=== PATIENT | female | born 1955 | race Caucasian/White ===

== ENCOUNTER 2017-04-24 09:11 | Day surgery (SDC) | payer BC ==
[~2017-04-24 09:11] MED LIST: CHONDR SU A NA/HYALUR INTRAOC KIT (SURGICARE) ONE; EPINEPHRINE INJ/PF 1 MG/1 ML AMPULE ONE; KETOROLAC TROMETHAMINE 0.45% 4 DROP/0.4 ML DROPERETTE OS PRN; LIDOCAINE 1% INJ-PF (10 MG/ML) 30 ML SDV ONE
[2017-04-24] MEDS: TETRACAINE HCL 0.5% OPH SOLN 2 ML OS PRN ×4 (09:27→10:06)
[2017-04-24] MEDS: CYCLOPENTOLATE 0.2%/PHENYLEPHRINE 1% OPH SOLN 2 ML OS PRN ×3 (09:27→09:50)
[2017-04-24] MEDS: BESIFLOXACIN HCL 0.6% OPH SUSP 5 ML BOTTLE OS PRN ×3 (09:28→10:21)
[2017-04-24] MEDS: TROPICAMIDE 1% OPH SOLN 3 ML OS PRN ×3 (09:28→09:51)
[2017-04-24] MEDS ORDERED: MIDAZOLAM 2 MG/2 ML INJ ONE (09:50)
[2017-04-24] MEDS ORDERED: FENTANYL CITRATE INJ/PF 100 MCG/2 ML AMPUL ONE (09:51)
[2017-04-24] MEDS ORDERED: ONDANSETRON HCL INJ/PF 4 MG/2 ML SDV ONE (09:55)
--- NOTE | 2017-04-25 07:48 | [facility] OPERATIVE REPORT E ---
[facility] Operative Report NAME: AILIN STACK AGE: 61Y DATE OF SURGERY: 04/24/2017 ROOM: PREOPERATIVE DIAGNOSIS: CATARACT, LEFT EYE. POSTOPERATIVE DIAGNOSIS: CATARACT, LEFT EYE. OPERATION: Cataract extraction with intraocular lens implant of the left eye. SURGEON: CARITO DINH M.D. ANESTHESIA: Topical. PROCEDURE: After obtaining appropriate consent, the patient's left eye was prepped and draped in sterile fashion as well as the surgeon in a sterile manner and cataract surgery was started. First a paracentesis blade was used to make a small side-port incision. Viscoelastic was used to inflate the anterior chamber. Next a 2.4 mm incision was made with the paracentesis blade. A continuous capsulorrhexis incision was made using a cystotome and Utrata forceps. Following this hydrodissection was carried out to make the lens fully loose and mobile and it was rotated 90 degrees. Following this, a eehxon-dxg-nyipnca technique was used to phacoemulsify the lens with a CDE of 11.01. The remaining cortex was removed with irrigation/aspiration. Provisc was instilled into the capsular bag to inflate the bag. A SN60WF, 23.0 diopter lens was placed. The remaining viscoelastic material was removed with irrigation/aspiration. Following this, a 10-0 nylon suture was used to close the incision and it was found to be watertight. Vigamox was instilled in the eye and a protective shield was placed over the eye. The patient returned to the postoperative recovery in stable condition. DICTATING PHYSICIAN: CARITO DINH M.D. [id number] PHY#: [id number] ID: [id number] JOB#: [id number] ACCT: [id number] cc:CARITO DIHN M.D. >
--- NOTE | 2017-04-25 07:49 | [facility] DISCHARGE SUMMARY E ---
[facility] Discharge Summary NAME: AILIN STACK AGE: 61Y ADMITTED: 04/24/2017 DISCHARGED: 04/24/2017 HOSPITAL COURSE: This is a 61-year-old female who underwent cataract extraction of the left eye. Diagnosis is cataract left eye, and she underwent surgery because she was having difficulty with glare when driving at night. She should be on a regular diet. No bending at her waist. No heavy lifting. She should use her Besivance, Ilevro, and Durezol at 3 p.m. and 8 p.m. and sleep with a rigid shield, and I will see her for a one day postoperative tomorrow. DICTATING PHYSICIAN: CARITO DINH M.D. [id number] PHY#: [id number] ID: [id number] JOB#: [id number] ACCT: [id number] cc:CARITO DINH M.D. >
== END 2017-04-24 11:04 | disposition home or self-care (01) ==
LOC: SC 09:11
PROVIDERS: ATTEND Internal Medicine
PROC: 08RK3JZ Replacement of Left Lens with Synthetic Substitute, Percutaneous Approach (ICD-10-PCS; principal; 2017-04-24 10:30)
DX: H25.12 Age-related nuclear cataract, left eye (principal); Z96.1 Presence of intraocular lens; H43.813 Vitreous degeneration, bilateral; I10 Essential (primary) hypertension; E78.00 Pure hypercholesterolemia, unspecified; Z79.82 Long term (current) use of aspirin; Z79.899 Other long term (current) drug therapy; Z79.02 Long term (current) use of antithrombotics/antiplatelets; Z86.73 Personal history of transient ischemic attack (TIA), and cerebral infarction without residual deficits; Z91.040 Latex allergy status
CPT/HCPCS: 66984; V2632; J2250; J3490 ×2; J0171; J3010; J2405; 142

== ENCOUNTER → 2017-08-08 | Outpatient (CLI) | payer BC ==
--- NOTE | 2017-08-08 10:07 | RADIOLOGY REPORT (SQ) ---
EXAM DESCRIPTION: CT ABD/PELVIS WITH IV ORAL COMPLETED DATE/TIME: 08/08/2017 8:28 am REASON FOR STUDY: ABD PAIN LEFT SIDE (R10.32) R10.32 LEFT LOWER QUADRANT PAIN COMPARISON: 03/07/2009. TECHNIQUE: CT scan of the abdomen and pelvis performed using helical scanning technique with dynamic intravenous contrast injection. No oral contrast. Images reviewed with lung, soft tissue, and bone windows. Reconstructed coronal and sagittal MPR images reviewed. Delayed images for evaluation of the urinary system also acquired. All images stored on PACS. All CT scanners at this facility use dose modulation, iterative reconstruction, and/or weight based d osing when appropriate to reduce radiation dose to as low as reasonably achievable (ALARA). [facility]: Dose Right [facility]: CareDose [facility]: Dose Right [facility]: Teradose 4D [facility]: Genasys CONTRAST TYPE AND DOSE: contrast/concentration: Isovue 370.00 mg/ml; Total Contrast Delivered: 74.0 ml; Total Saline Delivered: 57.0 ml RENAL FUNCTION: Creatinine 0.8. RADIATION DOSE: CT Rad equipment meets quality standard of care and radiation dose reduction techniq ues were employed. CTDIvol: 6.7 - 7.8 mGy. DLP: 670 mGy-cm.. LIMITATIONS: None. FINDINGS: LOWER CHEST: No significant findings. No nodules or infiltrates. LIVER: Normal size. No masses. No dilated ducts. SPLEEN: Normal size. No focal lesions. PANCREAS: No masses. No significant calcifications. No adjacent inflammation or peripancreatic fluid collections. Pancreatic duct not dilated. GALLBLADDER: No identified stones by CT criteria. No inflammatory changes to suggest cholecystitis. ADRENAL GLANDS: No significant masses or asymmetry. RIGHT KIDNEY AND URETER: No solid masses. No significant calcifications. No hydronephrosis or hyd roureter. LEFT KIDNEY AND URETER: No solid masses. No significant calcifications. No hydronephrosis or hydr oureter. AORTA AND VESSELS: No aneurysm. No dissection. Renal arteries, SMA, celiac without stenosis. RETROPERITONEUM: No retroperitoneal adenopathy, hemorrhage or masses. BOWEL AND PERITONEAL CAVITY: Bowel wall thickening involving the distal descending colon and proximal sigmoid colon. Prominent inflammatory changes in the adjacent soft tissues. No unusual fluid colle ction or extraluminal gas. No free fluid or peritoneal masses. APPENDIX: Surgically absent. PELVIS: No mass. No free fluid. Normal bladder. ABDOMINAL WALL: No masses. No hernias. BONES: No significant or acute findings. OTHER: No other significant finding. IMPRESSION: 1. PROMINENT BOWEL WALL THICKENING AND INFLAMMATORY CHANGES INVOLVING THE DISTAL DESCENDING COLON AND PROXIMAL SIGMOID COLON. MOST LIKELY DUE TO ACUTE DIVERTICULITIS. COLONIC MASS CANNOT BE EXCLUDED. NO EVIDENCE OF PERFORATION OR ABSCESS. 2. NO OTHER SIGNIFICANT OR ACUTE FINDING IN THE ABDOMEN OR PELVIS ON CT SCAN WITH IV CONTRAST. TECHNICAL DOCUMENTATION: JOB ID: [id number] Quality ID # [id number]: Final reports with documentation of one or more dose reduction techniques (e.g., Au tomated exposure control, adjustment of the mA and/or kV according to patient size, use of iterative reconstruction technique) 2010 N[employer]ative- All Rights Reserved
== END ==
LOC: RAD 07:40
PROVIDERS: ATTEND Surgery
DX: R10.32 Left lower quadrant pain (principal)
CPT/HCPCS: 74177; 82565

== ENCOUNTER 2017-08-26 08:46 | Inpatient (IN) | payer BC ==
[2017-08-26] MEDS ORDERED: MIDAZOLAM 2 MG/2 ML INJ ONE (09:57)
[2017-08-26] MEDS ORDERED: ONDANSETRON HCL INJ/PF 4 MG/2 ML SDV ONE (09:57)
[2017-08-26] MEDS ORDERED: NALOXONE HCL INJ/PF 0.4 MG/1 ML SDV ONE (09:57)
[2017-08-26] MEDS ORDERED: GLUCAGON,HUMAN RECOMB 1 MG INJ ONE (09:58)
[2017-08-26] MEDS ORDERED: FLUMAZENIL INJ 0.5 MG/5 ML VIAL ONE (09:58)
[2017-08-26] MEDS ORDERED: EPINEPHRINE INJ 1 MG/10 ML DISP.SYRIN ONE (09:58)
[2017-08-26 10:02] LABS: HEMATOCRIT 38.3 % (36.0-47.0); HEMOGLOBIN 12.9 g/dL (12.0-15.5); MEAN CORPUSCULAR HEMOGLOBIN 30.3 pg (27.0-33.4); MEAN CORPUSCULAR HGB CONC 33.7 g/dL (32.0-36.0); MEAN CORPUSCULAR VOLUME 90 fl (80-97); PLATELET COUNT 318 10^3/uL (150-450); RED BLOOD COUNT 4.26 10^6/uL (3.72-5.28); RED CELL DISTRIBUTION WIDTH 14.5 % (11.5-14.0)
[2017-08-26] MEDS: FENTANYL CITRATE INJ/PF 100 MCG/2 ML AMPUL ONE ×3 (10:05→10:20)
[2017-08-26 10:18] LABS: ANION GAP 10 (5-19); BLOOD UREA NITROGEN 10 mg/dL (7-20); CALCIUM 9.6 mg/dL (8.4-10.2); CARBON DIOXIDE 30 mmol/L (22-30); CHLORIDE 103 mmol/L (98-107); GLUCOSE 84 mg/dL (75-110); POTASSIUM 3.8 mmol/L (3.6-5.0); SODIUM 142.9 mmol/L (137-145)
[2017-08-26] MEDS ORDERED: DEXTROSE 40% GEL 15 GM TUBE PO PRN ×2 (11:14)
[2017-08-26] MEDS ORDERED: ONDANSETRON HCL INJ/PF 4 MG/2 ML SDV IV PRN (11:14)
[2017-08-26] MEDS ORDERED: DEXTROSE 50%-WATER 25 GM/50 ML DISP.SYRIN IV PRN ×2 (11:14)
[2017-08-26] MEDS ORDERED: GLUCAGON,HUMAN RECOMB 1 MG INJ SUBCUT PRN (11:14)
[2017-08-26] MEDS ORDERED: MORPHINE SULFATE 10 MG/ML INJ IV PRN (11:18)
[2017-08-26] MEDS ORDERED: VALSARTAN PO SCH (11:30)
[2017-08-26] MEDS ORDERED: [UNRECOGNIZED DRUG - OTHER] PO SCH (11:30)
[2017-08-26] MEDS ORDERED: HYDROCHLOROTHIAZIDE PO SCH (11:30)
[2017-08-26] MEDS: METRONIDAZOLE 500 MG/NS RTU 100 ML IV SCH ×2 (12:05→17:53)
[2017-08-26] MEDS: LEVOFLOXACIN 500 MG/D5W RTU 500 MG/100 ML RTUPB IV SCH (12:05)
--- NOTE | 2017-08-26 14:30 | Operative Report ---
Operative Report DATE OF SURGERY: 08/26/17 PREOPERATIVE DIAGNOSIS: Left-sided colitis POSTOPERATIVE DIAGNOSIS: Partial large bowel obstruction, anal stenosis OPERATION: Attempted colonoscopy, conversion to flexible sigmoidoscopy. SURGEON: TEE SIERRA ANESTHESIA: Moderate Sedation TISSUE REMOVED OR ALTERED: None COMPLICATIONS: None ESTIMATED BLOOD LOSS: None INTRAOPERATIVE FINDINGS: Tight anus consistent with anal stenosis. Edema of the mucosa of the sigmoid colon with functional obstruction of the sigmoid colon with inability to pass the scope beyond the sigmoid colon. No diverticuli seen. PROCEDURE: Informed consent was obtained. Patient was brought to the endoscopy suite. IV sedation with Versed and fentanyl was administered. Digital rectal exam revealed a very tight anus consistent with anal stenosis. I was barely able to place my finger. I did not palpate any perianal masses. It was difficult to pass the endoscope through the anal canal. Patient noted that she had hemorrhoidal surgery in the past and she has suffer from anal stenosis ever since. Endoscope was passed via the patient's anus up to the mid sigmoid colon. The sigmoid colon had edematous mucosa but I did not see any diverticuli. No ulcerations were seen. Beyond the distal sigmoid colon I could not pass the scope. The lumen was narrowed without visible mass. The colon felt very stiff in this region. And despite multiple technical measures the scope could not be passed beyond this point. I suspected a low-grade colon obstruction at this point. No diverticuli were seen in the distal sigmoid colon. I did not see any abnormalities in the rectum. Patient tolerated procedure well with no apparent complications and was taken to the recovery area in stable condition. Patient with marked inflammatory changes of the distal left colon and proximal sigmoid colon on CT scan with palpable mass in this area. I cannot rule out a neoplastic plaque process but likely an inflammatory process. With no diverticuli seen, hesitant to call this diverticulitis. She needs a left and sigmoid colon resection. I will plan to go ahead and admit her to the hospital and will plan this procedure tomorrow. I will have urology place ureteral stents to help protect the ureter in this difficult case. Most likely I will need to do a transverse colon to rectal stump anastomosis. Her anal stenosis will make it very difficult or impossible to do an EEA anastomosis. The proximal left colon will never reach the rectum therefore I will most likely need to resect to the redundant mid transverse colon as visible on CT scan.
--- NOTE | 2017-08-26 18:52 | PDOC PROGRESS REPORT ---
Subjective Progress Note for:: 08/26/17 Subjective:: Feels okay. Hungry. Reason For Visit: PARTIAL LARGE BOWEL OBSTRUCTION Physical Exam Vital Signs: Temp Pulse Resp BP Pulse Ox 97.6 F 77 18 140/60 H 100 08/26/17 18:30 08/26/17 18:30 08/26/17 18:30 08/26/17 18:30 08/26/17 18:30 Intake & Output 08/25/17 08/26/17 08/27/17 06:59 06:59 06:59 Intake Total 858 Balance 858 Weight 68.04 kg General appearance: PRESENT: no acute distress, cooperative Respiratory exam: PRESENT: clear to auscultation christi Cardiovascular exam: PRESENT: RRR GI/Abdominal exam: PRESENT: other - Soft, nondistended, focal tenderness in the left abdomen. Results Laboratory Results: 08/26/17 09:47 08/26/17 09:47 08/26/17 08/26/17 09:47 09:47 WBC 5.0 RBC 4.26 Hgb 12.9 Hct 38.3 MCV 90 MCH 30.3 MCHC 33.7 RDW 14.5 H Plt Count 318 Sodium 142.9 Potassium 3.8 Chloride 103 Carbon Dioxide 30 Anion Gap 10 BUN 10 Creatinine 0.75 Est GFR ( Amer) > 60 Est GFR (Non-Af Amer) > 60 Glucose 84 Calcium 9.6 Assessment & Plan - Diagnosis (1) Large bowel obstruction Is this a current diagnosis for this admission?: Yes Plan: Partial low-grade. Left colon Inflammatory mass. Neoplastic versus inflammatory in etiology. We will plan left colon and sigmoid colon resection with likely resection of the distal transverse colon with transverse colon to rectal anastomosis, possible colostomy, possible diverting ileostomy. I have had a long discussion with the patient concerning the nature of the surgery and the risk and benefits. Risk of adjacent structure injury especially in light of the significant inflammatory changes in the proximity to the ureter. Also risk of damage to the bowel. Risk of anastomotic leak. Risk of bleeding. Will plan to have urology place ureteral stents prior to surgery. Patient understands and agrees to proceed. Will allow patient to have some liquids tonight. N.p.o. post midnight.
[2017-08-26] MEDS ORDERED: METRONIDAZOLE 500 MG/NS RTU 100 ML IV ONE (23:57)
[2017-08-27] MEDS: METRONIDAZOLE 500 MG/NS RTU 100 ML IV SCH ×4 (00:02→18:45)
[2017-08-27] MEDS: DEXTROSE 5%-1/2 NORMAL SALINE 1,000 ML IV PRN (01:06)
[2017-08-27] MEDS: ASPIRIN 81 MG TABLET, ENT COATED PO SCH (09:01)
[2017-08-27] MEDS: HYDROCHLOROTHIAZIDE 12.5 MG CAPSULE PO SCH (10:31)
[2017-08-27] MEDS: VALSARTAN 160 MG TABLET PO SCH (10:31)
[2017-08-27] MEDS ORDERED: GLYCOPYRROLATE INJ 0.4 MG/2 ML VIAL ONE (11:33)
[2017-08-27] MEDS ORDERED: ONDANSETRON HCL INJ/PF 4 MG/2 ML SDV ONE ×2 (11:33→17:00)
[2017-08-27] MEDS ORDERED: LIDOCAINE 2% INJ-PF (20 MG/ML) 10 ML AMPUL ONE (11:33)
[2017-08-27] MEDS ORDERED: KETOROLAC TROMETHAMINE 60 MG/2 ML SDV ONE (11:33)
[2017-08-27] MEDS ORDERED: ROCURONIUM BROMIDE INJ 50 MG/5 ML VIAL IV ONE (11:33)
[2017-08-27] MEDS ORDERED: DEXAMETHASONE SOD PHOSPHATE INJ 4 MG/1 ML VIAL ONE (11:33)
[2017-08-27] MEDS ORDERED: SUCCINYLCHOLINE CHLORIDE INJ 200 MG/10 ML VIAL ONE (11:33)
[2017-08-27] MEDS ORDERED: METOCLOPRAMIDE HCL INJ/PF 10 MG/2 ML SDV ONE (11:33)
[2017-08-27] MEDS ORDERED: NEOSTIGMINE METHYLSULFATE 10 MG/10 ML VIAL ONE (11:33)
[2017-08-27] MEDS ORDERED: EPHEDRINE SULFATE INJ 50 MG/1 ML AMPULE ONE (11:40)
[2017-08-27] MEDS ORDERED: FENTANYL CITRATE INJ/PF 250 MCG/5 ML AMPULE ONE (11:40)
[2017-08-27] MEDS ORDERED: MIDAZOLAM 2 MG/2 ML INJ ONE (11:40)
[2017-08-27] MEDS ORDERED: PROPOFOL INJ 200 MG/20 ML VIAL IV ONE (11:41)
[2017-08-27] MEDS ORDERED: HYDROMORPHONE HCL INJ/PF 2 MG/ML AMPULE ONE ×2 (11:41→14:28)
[2017-08-27] MEDS ORDERED: METRONIDAZOLE 500 MG/NS RTU 100 ML IV ONE (12:03)
--- NOTE | 2017-08-27 12:24 | PDOC PROGRESS REPORT ---
Subjective Progress Note for:: 08/27/17 Subjective:: Feels bloated but otherwise okay Reason For Visit: PARTIAL LARGE BOWEL OBSTRUCTION Physical Exam Vital Signs: Temp Pulse Resp BP Pulse Ox 97.8 F 54 L 15 133/63 H 96 08/27/17 08:45 08/27/17 08:45 08/27/17 08:45 08/27/17 08:45 08/27/17 08:45 Intake & Output 08/26/17 08/27/17 08/28/17 06:59 06:59 06:59 Intake Total 1008 500 Balance 1008 500 Weight 68.04 kg 71.1 kg General appearance: PRESENT: no acute distress, cooperative GI/Abdominal exam: PRESENT: other - Soft, mildly distended, focal tenderness in the left abdomen. Results Laboratory Results: 08/26/17 09:47 08/26/17 09:47 Assessment & Plan - Diagnosis (1) Large bowel obstruction Is this a current diagnosis for this admission?: Yes Plan: Partial low-grade. Left colon Inflammatory mass. Will proceed with her colon resection as discussed yesterday.
[2017-08-27] MEDS: LEVOFLOXACIN 500 MG/D5W RTU 500 MG/100 ML RTUPB IV SCH (12:53)
--- NOTE | 2017-08-27 13:38 | Brief Operative Note ---
BRIEF OPERATIVE REPORT DATE OF SURGERY: 08/27/17 TIME OF SURGERY: 13:00 PREOPERATIVE DIAGNOSIS: Need for pre-operative stents POSTOPERATIVE DIAGNOSIS: Same as pre-op SURGEON: SHAREE NATH FINDINGS: Unremarkable bladder. Bilateral externalized ureteral catheters placed without difficulty and secured to temple catheter. COMPLICATIONS: None ESTIMATED BLOOD LOSS: 0cc TISSUE REMOVED OR ALTERED: None TECHNICAL PROCEDURE: cystoscopy, bilateral externalized ureteral stent placement
--- NOTE | 2017-08-27 13:43 | Operative Report ---
Operative Report DATE OF SURGERY: 08/27/17 PREOPERATIVE DIAGNOSIS: Need for pre-operative stents POSTOPERATIVE DIAGNOSIS: Same as pre-op OPERATION: cystoscopy, bilateral externalized ureteral stent placement SURGEON: SHAREE NATH ANESTHESIA: GA TISSUE REMOVED OR ALTERED: None COMPLICATIONS: None ESTIMATED BLOOD LOSS: 0cc INTRAOPERATIVE FINDINGS: Unremarkable bladder. Bilateral externalized ureteral catheters placed without difficulty and secured to temple catheter. PROCEDURE: Informed consent was obtained and the patient was brought to the operating room and administered excellent general anesthesia. Time out was observed and all members of the surgical, nursing and anesthesia team were in agreement with the procedure to be performed. Pre-operative antibiotics were administered prior to start of procedure. The patient was prepped and draped in the usual sterile fashion in the dorsolithotomy position. A 25Fr rigid cystoscope was used to evaluate the bladder. Mucosa was normal without lesions and the ureteral orificies were in their orthotopic position bilaterally. A 5Fr open ended ureteral catheter was advanced up the left ureter without difficulty. This was repeated on the right side, but due to some resistance around 10cm, a 0.035 glidewire was used through the lumen of the catheter, advanced to the level of the renal pelvis and the catheter then easily advanced over the wire. Both stents were advanced to 25cm at the UO, scope removed and temple catheter placed. The bladder was drained and the stents were secured to the catheter by a 3-0 silk suture. Right and left were labeled for future reference. No complications. Patient tolerated the procedure well. Case was turned over to Dr. Grimes for his portion.
[2017-08-27] MEDS ORDERED: MEPERIDINE HCL/PF INJ 25 MG/1 ML DISP.SYRIN IV PRN (15:05)
[2017-08-27] MEDS ORDERED: PROMETHAZINE HCL INJ 25 MG/1 ML VIAL IV PRN ×2 (15:05)
[2017-08-27] MEDS ORDERED: OXYCODONE-ACETAMINOPHEN 5-325 MG TABLET PO PRN ×2 (15:05)
[2017-08-27] MEDS ORDERED: FENTANYL CITRATE INJ/PF 100 MCG/2 ML AMPUL IV PRN ×3 (15:05)
[2017-08-27] MEDS ORDERED: DIPHENHYDRAMINE HCL 50 MG/ML VIAL IV PRN (15:05)
[2017-08-27] MEDS ORDERED: MORPHINE SULFATE 10 MG/ML INJ IV PRN (15:05)
[2017-08-27] MEDS ORDERED: ONDANSETRON HCL INJ/PF 4 MG/2 ML SDV IV PRN (15:05)
[2017-08-27] MEDS ORDERED: BUPIVACAINE HCL 0.25 % INJ/PF (2.5 MG/1 ML) 30 ML VIAL ONE (16:20)
--- NOTE | 2017-08-27 16:56 | Operative Report ---
Operative Report DATE OF SURGERY: 08/27/17 PREOPERATIVE DIAGNOSIS: Large bowel obstruction, left colon mass. POSTOPERATIVE DIAGNOSIS: Large bowel obstruction, descending colon diverticulitis with retroperitoneal perforation OPERATION: Exploratory laparotomy, lysis of adhesions, resection of sigmoid, left colon, and distal transverse colon, with mobilization of splenic flexure. Colorectal anastomosis. Resection of left ovary. SURGEON: TEE SIERRA ANESTHESIA: GA TISSUE REMOVED OR ALTERED: Distal transverse colon, left colon, sigmoid colon, left ovary. COMPLICATIONS: None ESTIMATED BLOOD LOSS: 200 cc INTRAOPERATIVE FINDINGS: Extensive intra-abdominal adhesions. Left colon diverticulitis with perforation into the retroperitoneum. PROCEDURE: Informed consent was obtained. Patient was brought to the operating room and placed on the operating table in supine position. After satisfactory induction of general anesthesia patient was placed in a low lithotomy position and bilateral ureteral stents were placed by urology. please refer to their portion of the dictation for the ureteral stent placement. Patient's abdomen was prepped and draped in the usual sterile fashion. A midline abdominal incision was made dissection carried down through the fascia and the peritoneal cavity was entered without difficulty. There were extensive omental and bowel adhesions to the abdominal wall which were taken down. Portion of the omentum was plastered to the left colon and the omentum was divided allowing the portion that was plastered to the left colon to be removed en bloc with the specimen. A wound protractor and Bookwalter retractor was used during the case. Exploratory laparotomy was performed first. Small bowel appeared to be normal. The right colon and transverse colon appeared dilated but otherwise appeared normal. The stomach felt normal. NG tube position was confirmed. The liver felt smooth with no nodularity. The very distal sigmoid colon felt normal. The left colon was plastered to the retroperitoneum with masslike effect the left ovary appeared to be adhered to the colon as well. Dissection was begun distally at the distal sigmoid where I was able to obtain a clean plane. The colon was divided at the junction between the distal sigmoid colon and the intraperitoneal portion of the rectum. This region of bowel appeared soft pliable and normal. The omentum was taken off of the transverse colon and the splenic flexure was mobilized beginning from the distal transverse colon going distally down. The left colon was mobilized at the proximal aspect. As I approached the region of mass with plastering to the retroperitoneum, the ureter was visualized and palpated to protected during the dissection. The ureter tented up to the mass in the retroperitoneum. But I found a plane between the mass and the ureter and was able to bring the ureter down. The adhered left ovary was taken along with the specimen using a LigaSure to divide its attachments and blood supply. The retroperitoneal involvement of the left colon mass was taken en bloc using the LigaSure device. The pancreas was palpable well superior to the area of involvement. The KEATON was taken but it appeared occluded. The transverse colon was divided at the mid transverse colon level using a KACIE stapling device. There was no way the splenic flexure would have come down to the rectal stump for anastomosis. The transverse colon fortunately was redundant and the mid transverse colon appeared to be mobile enough to reach the rectum. The middle colic artery was taken by clamping dividing and tying. The specimen was the distal transverse colon, left colon, sigmoid colon, attached left ovary, and en bloc resection of the retroperitoneum along with the left colon and sigmoid colon mesentery. The specimen was submitted to pathology and upon opening the specimen it was evident that patient had diverticulitis with perforation into the retroperitoneum with a retroperitoneal abscess. Of note during the procedure small amount of pus was noted around this region which was swabbed and submitted for Gram stain and culture. Remainder of the omentum was taken off of the transverse colon. The midportion of the transverse colon reach down to the rectal stump well without any tension and it appeared to have excellent blood supply as demonstrated by triphasic Doppler signals and pink appearance of the bowel. A [id number] functional end-to-end anastomosis was created between the transverse colon end and the rectal stump. Enterotomy created to introduced the KACIE stapling device was closed with a TA stapling device. The anastomosis appeared secure. Hemostasis appeared excellent. Of note the operative field was irrigated with sterile water and irrigant aspirated out to the end of the procedure. A Adelso-Lozano drain was placed into the patient's pelvis near the anastomosis and brought out through separate stab incision in the patient's right lower abdomen. It was sutured in place. Sponge needle and instrument counts were all correct. Fascia was closed with a running PDS suture. Skin was closed with loly. Marcaine was injected at the operative site. Patient tolerated procedure well with no apparent complications and was taken to the recovery area in stable condition.
[2017-08-27] MEDS ORDERED: PROMETHAZINE HCL INJ 25 MG/1 ML VIAL ONE (17:18)
--- NOTE | 2017-08-27 17:29 | PDOC PROGRESS REPORT ---
Subjective Progress Note for:: 08/27/17 Subjective:: Nausea. Reason For Visit: PARTIAL LARGE BOWEL OBSTRUCTION Physical Exam Vital Signs: Temp Pulse Resp BP Pulse Ox 97.8 F 54 L 15 133/63 H 96 08/27/17 08:45 08/27/17 08:45 08/27/17 08:45 08/27/17 08:45 08/27/17 08:45 Intake & Output 08/26/17 08/27/17 08/28/17 06:59 06:59 06:59 Intake Total 1008 1500 Output Total 1000 Balance 1008 500 Weight 68.04 kg 71.1 kg General appearance: PRESENT: other - Drowsy but easily arousable. Complains of nausea. Respiratory exam: PRESENT: clear to auscultation christi Cardiovascular exam: PRESENT: RRR GI/Abdominal exam: PRESENT: other - Soft, mildly distended, appropriate tenderness. NG output is minimal. Results Laboratory Results: 08/26/17 09:47 08/26/17 09:47 Assessment & Plan - Diagnosis (1) Large bowel obstruction Is this a current diagnosis for this admission?: Yes Plan: Secondary to left colon diverticulitis with diverticular abscess. Status post distal transverse colon, left colon, and sigmoid colon resection with transverse colon rectal anastomosis. Patient with postoperative nausea. NG tube position was confirmed during the operation. Zofran, IV fluids, await bowel function.
[2017-08-27] MEDS: KETOROLAC TROMETHAMINE INJ/PF 30 MG/1 ML SDV IV PRN (20:30)
[2017-08-27] MEDS: HYDROMORPHONE HCL INJ/PF 2 MG/ML AMPULE IV PRN (22:50)
[2017-08-28] MEDS: METRONIDAZOLE 500 MG/NS RTU 100 ML IV SCH ×4 (00:17→19:04)
[2017-08-28] MEDS: HYDROMORPHONE HCL INJ/PF 2 MG/ML AMPULE IV PRN ×5 (03:32→22:02)
[2017-08-28] MEDS: DEXTROSE 5%-1/2 NORMAL SALINE 1,000 ML IV PRN (08:21)
[2017-08-28 08:41] LABS: HEMATOCRIT 33.1 % (36.0-47.0); HEMOGLOBIN 11.3 g/dL (12.0-15.5); MEAN CORPUSCULAR HEMOGLOBIN 30.4 pg (27.0-33.4); MEAN CORPUSCULAR HGB CONC 34.1 g/dL (32.0-36.0); MEAN CORPUSCULAR VOLUME 89 fl (80-97); PLATELET COUNT 273 10^3/uL (150-450); RED BLOOD COUNT 3.72 10^6/uL (3.72-5.28); RED CELL DISTRIBUTION WIDTH 13.8 % (11.5-14.0)
[2017-08-28 08:55] LABS: ANION GAP 8 (5-19); BLOOD UREA NITROGEN 11 mg/dL (7-20); CARBON DIOXIDE 23 mmol/L (22-30); CHLORIDE 106 mmol/L (98-107); GLUCOSE 93 mg/dL (75-110); POTASSIUM 3.9 mmol/L (3.6-5.0); SODIUM 137.2 mmol/L (137-145)
[2017-08-28 09:24] LABS: WHITE BLOOD COUNT 13.4 10^3/uL (4.0-10.5)
[2017-08-28] MEDS: HYDROCHLOROTHIAZIDE 12.5 MG CAPSULE PO SCH (09:51)
[2017-08-28] MEDS: VALSARTAN 160 MG TABLET PO SCH (09:51)
[2017-08-28] MEDS: ASPIRIN 81 MG TABLET, ENT COATED PO SCH (09:51)
--- NOTE | 2017-08-28 10:11 | PDOC PROGRESS REPORT ---
Subjective Progress Note for:: 08/28/17 Subjective:: Feels okay. Pain under good control. Reason For Visit: PARTIAL LARGE BOWEL OBSTRUCTION Physical Exam Vital Signs: Temp Pulse Resp BP Pulse Ox 98.5 F 121 H 18 129/71 H 94 08/28/17 08:38 08/28/17 08:38 08/28/17 08:38 08/28/17 08:38 08/28/17 08:38 Intake & Output 08/27/17 08/28/17 08/29/17 06:59 06:59 06:59 Intake Total 1008 8000 Output Total 1960 Balance 1008 6040 Weight 68.04 kg 71.1 kg General appearance: PRESENT: no acute distress, cooperative Respiratory exam: PRESENT: clear to auscultation christi Cardiovascular exam: PRESENT: RRR GI/Abdominal exam: PRESENT: other - Soft, nondistended, appropriate mild tenderness to palpation. Drain output is serosanguineous. Extremities exam: PRESENT: other - No swelling Results Laboratory Results: 08/28/17 08:03 08/28/17 08:03 08/28/17 08/28/17 08:03 08:03 WBC 13.4 H D RBC 3.72 Hgb 11.3 L Hct 33.1 L MCV 89 MCH 30.4 MCHC 34.1 RDW 13.8 Plt Count 273 Sodium 137.2 Potassium 3.9 Chloride 106 Carbon Dioxide 23 Anion Gap 8 BUN 11 Creatinine 0.89 Est GFR ( Amer) > 60 Est GFR (Non-Af Amer) > 60 Glucose 93 Calcium 9.0 Assessment & Plan - Diagnosis (1) Large bowel obstruction Is this a current diagnosis for this admission?: Yes Plan: Secondary to left colon diverticulitis with diverticular abscess. Status post distal transverse colon, left colon, and sigmoid colon resection with transverse colon rectal anastomosis. Patient looks good. Encourage ambulation. Await bowel function.
[2017-08-28] MEDS: LEVOFLOXACIN 500 MG/D5W RTU 500 MG/100 ML RTUPB IV SCH (12:32)
[2017-08-28] MEDS: KETOROLAC TROMETHAMINE INJ/PF 30 MG/1 ML SDV IV PRN ×2 (14:35→20:57)
[2017-08-28] MEDS: ONDANSETRON HCL INJ/PF 4 MG/2 ML SDV IV PRN (19:02)
[2017-08-29] MEDS: METRONIDAZOLE 500 MG/NS RTU 100 ML IV SCH ×4 (00:12→18:33)
[2017-08-29] MEDS: ONDANSETRON HCL INJ/PF 4 MG/2 ML SDV IV PRN ×4 (00:42→14:11)
[2017-08-29] MEDS: HYDROMORPHONE HCL INJ/PF 2 MG/ML AMPULE IV PRN ×5 (00:43→16:35)
[2017-08-29] MEDS: KETOROLAC TROMETHAMINE INJ/PF 30 MG/1 ML SDV IV PRN ×4 (03:29→22:51)
[2017-08-29] MEDS: DEXTROSE 5%-1/2 NORMAL SALINE 1,000 ML IV PRN (05:23)
--- NOTE | 2017-08-29 09:03 | PDOC PROGRESS REPORT ---
Subjective Progress Note for:: 08/29/17 Subjective:: Feels well today. No flatus. Pain under good control. Reason For Visit: PARTIAL LARGE BOWEL OBSTRUCTION Physical Exam Vital Signs: Temp Pulse Resp BP Pulse Ox 97.8 F 62 18 138/56 H 96 08/29/17 08:43 08/29/17 08:43 08/29/17 08:43 08/29/17 08:43 08/29/17 08:43 Intake & Output 08/28/17 08/29/17 08/30/17 06:59 06:59 06:59 Intake Total 8000 Output Total 1960 3120 Balance 6040 -3120 Weight 71.1 kg 73.1 kg General appearance: PRESENT: no acute distress, cooperative Respiratory exam: PRESENT: clear to auscultation christi Cardiovascular exam: PRESENT: RRR GI/Abdominal exam: PRESENT: other - Soft, mildly distended, mild tenderness. Drain output is serosanguineous. NG output is scant Extremities exam: PRESENT: other - No swelling. Results Laboratory Results: 08/28/17 08:03 08/28/17 08:03 08/28/17 08/28/17 08:03 08:03 WBC 13.4 H D RBC 3.72 Hgb 11.3 L Hct 33.1 L MCV 89 MCH 30.4 MCHC 34.1 RDW 13.8 Plt Count 273 Sodium 137.2 Potassium 3.9 Chloride 106 Carbon Dioxide 23 Anion Gap 8 BUN 11 Creatinine 0.89 Est GFR ( Amer) > 60 Est GFR (Non-Af Amer) > 60 Glucose 93 Calcium 9.0 Assessment & Plan - Diagnosis (1) Large bowel obstruction Is this a current diagnosis for this admission?: Yes Plan: Secondary to left colon diverticulitis with diverticular abscess. Status post extended left hemicolectomy. Patient looks good. Await bowel function. DC Lopes catheter.
[2017-08-29] MEDS ORDERED: DEXTROSE 5%-1/2 NORMAL SALINE 1,000 ML with POTASSIUM CHLORIDE 30 MEQ IV PRN ×2 (09:05)
[2017-08-29] MEDS: ASPIRIN 81 MG TABLET, ENT COATED PO SCH (09:51)
[2017-08-29] MEDS: VALSARTAN 160 MG TABLET PO SCH (09:51)
[2017-08-29] MEDS: HYDROCHLOROTHIAZIDE 12.5 MG CAPSULE PO SCH (09:51)
[2017-08-29] MEDS: LEVOFLOXACIN 500 MG/D5W RTU 500 MG/100 ML RTUPB IV SCH (11:20)
[2017-08-29] MEDS: POTASSI CL 30 MEQ/D5-1/2NS 1L 1000 ML IV PRN (16:06)
[2017-08-29] MEDS ORDERED: PROMETHAZINE HCL INJ 25 MG/1 ML VIAL ONE (18:28)
[2017-08-29] MEDS: PROMETHAZINE HCL INJ 25 MG/1 ML VIAL IV PRN (22:51)
[2017-08-30] MEDS: METRONIDAZOLE 500 MG/NS RTU 100 ML IV SCH ×3 (00:29→13:44)
[2017-08-30] MEDS: HYDROMORPHONE HCL INJ/PF 2 MG/ML AMPULE IV PRN ×4 (02:33→20:34)
[2017-08-30] MEDS: PROMETHAZINE HCL INJ 25 MG/1 ML VIAL IV PRN ×4 (05:06→23:42)
[2017-08-30] MEDS: KETOROLAC TROMETHAMINE INJ/PF 30 MG/1 ML SDV IV PRN ×2 (08:13→15:33)
[2017-08-30] MEDS: VALSARTAN 160 MG TABLET PO SCH (10:59)
[2017-08-30] MEDS: HYDROCHLOROTHIAZIDE 12.5 MG CAPSULE PO SCH (10:59)
[2017-08-30] MEDS: ASPIRIN 81 MG TABLET, ENT COATED PO SCH (10:59)
[2017-08-30] MEDS: POTASSI CL 30 MEQ/D5-1/2NS 1L 1000 ML IV PRN ×2 (11:00→23:42)
[2017-08-30] MEDS: LEVOFLOXACIN 500 MG/D5W RTU 500 MG/100 ML RTUPB IV SCH (12:09)
--- NOTE | 2017-08-30 14:13 | PDOC PROGRESS REPORT ---
Subjective Progress Note for:: 08/30/17 Subjective:: had n/v when ng wasn't on suction yesterday. feel better now. Reason For Visit: PARTIAL LARGE BOWEL OBSTRUCTION Physical Exam Vital Signs: Temp Pulse Resp BP Pulse Ox 98.1 F 73 16 155/59 H 97 08/30/17 07:41 08/30/17 07:41 08/30/17 07:41 08/30/17 07:41 08/30/17 07:41 Intake & Output 08/29/17 08/30/17 08/31/17 06:59 06:59 06:59 Intake Total 1060 Output Total 3120 2310 400 Balance -3120 -1250 -400 Weight 73.1 kg 73 kg General appearance: PRESENT: no acute distress, cooperative Respiratory exam: PRESENT: clear to auscultation christi Cardiovascular exam: PRESENT: RRR GI/Abdominal exam: PRESENT: other - soft, nd, minimal tenderness. ng output bilious Results Laboratory Results: 08/28/17 08:03 08/28/17 08:03 08/27/17 13:57 Abdomen - Abscess Gram Stain - Final 08/27/17 13:57 Abdomen - Abscess Wound Culture - Final Escherichia Coli No Anaerobic Organisms Assessment & Plan - Diagnosis (1) Large bowel obstruction Is this a current diagnosis for this admission?: Yes Plan: Secondary to left colon diverticulitis with diverticular abscess. Status post extended left hemicolectomy. await bowel function. d/c abx.
[2017-08-30] MEDS: ONDANSETRON HCL INJ/PF 4 MG/2 ML SDV IV PRN (15:33)
[2017-08-30] MEDS ORDERED: CEFOXITIN INJ 1 GM VIAL ONE (21:51)
[2017-08-31] MEDS: HYDROMORPHONE HCL INJ/PF 2 MG/ML AMPULE IV PRN ×3 (05:07→15:22)
[2017-08-31 07:23] LABS: ANION GAP 8 (5-19); BLOOD UREA NITROGEN 7 mg/dL (7-20); CALCIUM 8.6 mg/dL (8.4-10.2); CARBON DIOXIDE 29 mmol/L (22-30); CHLORIDE 102 mmol/L (98-107); GLUCOSE 89 mg/dL (75-110); POTASSIUM 3.7 mmol/L (3.6-5.0); SODIUM 138.6 mmol/L (137-145)
[2017-08-31] MEDS: ASPIRIN 81 MG TABLET, ENT COATED PO SCH (09:51)
[2017-08-31] MEDS: PROMETHAZINE HCL INJ 25 MG/1 ML VIAL IV PRN ×2 (09:51→20:45)
[2017-08-31] MEDS: HYDROCHLOROTHIAZIDE 12.5 MG CAPSULE PO SCH (09:51)
[2017-08-31] MEDS: VALSARTAN 160 MG TABLET PO SCH (09:51)
--- NOTE | 2017-08-31 12:31 | PDOC PROGRESS REPORT ---
Subjective Progress Note for:: 08/31/17 Subjective:: feels thirsty; denies flatus Reason For Visit: PARTIAL LARGE BOWEL OBSTRUCTION Physical Exam Vital Signs: Temp Pulse Resp BP Pulse Ox 97.6 F 77 16 168/56 H 93 08/31/17 07:46 08/31/17 07:46 08/31/17 07:46 08/31/17 07:46 08/31/17 07:46 Intake & Output 08/30/17 08/31/17 09/01/17 06:59 06:59 06:59 Intake Total 1568 230 Output Total 2310 1400 Balance -742 -1170 Weight 73 kg 73.1 kg General appearance: PRESENT: cooperative, mild distress Mouth exam: PRESENT: dry mucosa Respiratory exam: PRESENT: clear to auscultation christi Cardiovascular exam: PRESENT: RRR GI/Abdominal exam: PRESENT: hypoactive bowel sounds, soft, other - surgical wound covered with dressing c/d/i, with old blood staining Results Laboratory Results: 08/28/17 08:03 08/31/17 06:20 08/31/17 06:20 Sodium 138.6 Potassium 3.7 Chloride 102 Carbon Dioxide 29 Anion Gap 8 BUN 7 Creatinine 0.82 Est GFR ( Amer) > 60 Est GFR (Non-Af Amer) > 60 Glucose 89 Calcium 8.6 08/27/17 13:57 Abdomen - Abscess Gram Stain - Final 08/27/17 13:57 Abdomen - Abscess Wound Culture - Final Escherichia Coli No Anaerobic Organisms Assessment & Plan - Diagnosis (1) Large bowel obstruction Is this a current diagnosis for this admission?: Yes - Plan Summary Plan Summary: A/ POD #4 after extended left colectomy and left oophorectomy for obstructing colon mass secondary to ruptured diverticulitis VSS, AF Elevated NGT output (1400 mL past 24 hrs) UO not available BUN/creat and K stable No flatus Dry oral mucosa Patient drinks water and takes a fair amount of ice chips PE unremarkable P/ Give NS bolus Increase IVF maintenance Absolute NPO Accurate I/O's Daily labs
[2017-08-31] MEDS ORDERED: NORMAL SALINE 1000 ML 1,000 ML IV ONE ×2 (12:45→19:30)
[2017-08-31 14:15] LABS: APPEARANCE,URINE CLEAR; BILIRUBIN,URINE NEGATIVE (NEGATIVE); COLOR,URINE BROWN; GLUCOSE, URINE NEGATIVE (NEGATIVE); KETONES,URINE NEGATIVE (NEGATIVE); LEUKOCYTE ESTERASE,URINE NEGATIVE (NEGATIVE); NITRITE,URINE NEGATIVE (NEGATIVE); PROTEIN,URINE NEGATIVE (NEGATIVE); URINE SPECIFIC GRAVITY 1.013; UROBILINOGEN,URINE NEGATIVE mg/dL (<2.0)
[2017-08-31 15:47] LABS: ABSOLUTE BASOPHILS # (AUTO) 0.1 10^3/uL (0.0-0.2); ABSOLUTE EOSINOPHILS # (AUTO) 0.6 10^3/uL (0.0-0.6); ABSOLUTE LYMPHOCYTES (AUTO) 1.3 10^3/uL (0.5-4.7); ABSOLUTE MONOCYTES (AUTO) 0.5 10^3/uL (0.1-1.4); ABSOLUTE NEUT (AUTO) 4.2 10^3/uL (1.7-8.2); BASOPHILS % (AUTO) 0.9 % (0-2); EOSINOPHILS % (AUTO) 8.5 % (0-6); HEMATOCRIT 34.4 % (36.0-47.0); HEMOGLOBIN 11.4 g/dL (12.0-15.5); LYMPHOCYTES % (AUTO) 19.3 % (13-45); MEAN CORPUSCULAR HEMOGLOBIN 29.8 pg (27.0-33.4); MEAN CORPUSCULAR HGB CONC 33.1 g/dL (32.0-36.0); MEAN CORPUSCULAR VOLUME 90 fl (80-97); MONOCYTES % (AUTO) 7.9 % (3-13); PLATELET COUNT 278 10^3/uL (150-450); RED BLOOD COUNT 3.81 10^6/uL (3.72-5.28); RED CELL DISTRIBUTION WIDTH 14.2 % (11.5-14.0); SEGMENTED NEUTROPHILS % (AUTO) 63.4 % (42-78); TOTAL CELLS COUNTED % (AUTO) 100 %; WHITE BLOOD COUNT 6.6 10^3/uL (4.0-10.5)
[2017-08-31] MEDS: POTASSI CL 20 MEQ/D5NS 1L 20 MEQ/1,000 ML RTUINJ IV PRN (16:27)
[2017-08-31 17:16] LABS: ABSOLUTE BASOPHILS # (AUTO) 0.1 10^3/uL (0.0-0.2); ABSOLUTE EOSINOPHILS # (AUTO) 0.6 10^3/uL (0.0-0.6); ABSOLUTE LYMPHOCYTES (AUTO) 1.3 10^3/uL (0.5-4.7); ABSOLUTE MONOCYTES (AUTO) 0.6 10^3/uL (0.1-1.4); ABSOLUTE NEUT (AUTO) 5.3 10^3/uL (1.7-8.2); EOSINOPHILS % (AUTO) 7.6 % (0-6); HEMATOCRIT 33.5 % (36.0-47.0); HEMOGLOBIN 11.5 g/dL (12.0-15.5); LYMPHOCYTES % (AUTO) 16.2 % (13-45); MEAN CORPUSCULAR HEMOGLOBIN 30.4 pg (27.0-33.4); MEAN CORPUSCULAR HGB CONC 34.4 g/dL (32.0-36.0); MEAN CORPUSCULAR VOLUME 88 fl (80-97); MONOCYTES % (AUTO) 7.1 % (3-13); PLATELET COUNT 288 10^3/uL (150-450); RED BLOOD COUNT 3.79 10^6/uL (3.72-5.28); RED CELL DISTRIBUTION WIDTH 14.2 % (11.5-14.0); SEGMENTED NEUTROPHILS % (AUTO) 68.1 % (42-78); TOTAL CELLS COUNTED % (AUTO) 100 %; WHITE BLOOD COUNT 7.8 10^3/uL (4.0-10.5)
[2017-08-31] MEDS: ONDANSETRON HCL INJ/PF 4 MG/2 ML SDV IV PRN (19:37)
[2017-09-01] MEDS: HYDROMORPHONE HCL INJ/PF 2 MG/ML AMPULE IV PRN ×2 (01:00→08:16)
[2017-09-01] MEDS: POTASSI CL 20 MEQ/D5NS 1L 20 MEQ/1,000 ML RTUINJ IV PRN ×2 (03:19→21:44)
[2017-09-01 05:19] LABS: ABSOLUTE BASOPHILS # (AUTO) 0.1 10^3/uL (0.0-0.2); ABSOLUTE EOSINOPHILS # (AUTO) 0.6 10^3/uL (0.0-0.6); ABSOLUTE LYMPHOCYTES (AUTO) 1.8 10^3/uL (0.5-4.7); ABSOLUTE MONOCYTES (AUTO) 0.5 10^3/uL (0.1-1.4); ABSOLUTE NEUT (AUTO) 3.7 10^3/uL (1.7-8.2); BASOPHILS % (AUTO) 1.1 % (0-2); EOSINOPHILS % (AUTO) 9.6 % (0-6); HEMATOCRIT 31.1 % (36.0-47.0); HEMOGLOBIN 10.7 g/dL (12.0-15.5); LYMPHOCYTES % (AUTO) 26.5 % (13-45); MEAN CORPUSCULAR HEMOGLOBIN 30.5 pg (27.0-33.4); MEAN CORPUSCULAR HGB CONC 34.3 g/dL (32.0-36.0); MEAN CORPUSCULAR VOLUME 89 fl (80-97); PLATELET COUNT 279 10^3/uL (150-450); SEGMENTED NEUTROPHILS % (AUTO) 54.8 % (42-78); TOTAL CELLS COUNTED % (AUTO) 100 %; WHITE BLOOD COUNT 6.8 10^3/uL (4.0-10.5)
[2017-09-01 05:39] LABS: ANION GAP 7 (5-19); BLOOD UREA NITROGEN 5 mg/dL (7-20); CARBON DIOXIDE 25 mmol/L (22-30); CHLORIDE 107 mmol/L (98-107); GLUCOSE 96 mg/dL (75-110); POTASSIUM 3.8 mmol/L (3.6-5.0); SODIUM 138.6 mmol/L (137-145)
[2017-09-01] MEDS: PROMETHAZINE HCL INJ 25 MG/1 ML VIAL IV PRN ×3 (08:16→23:49)
[2017-09-01] MEDS: HYDROCHLOROTHIAZIDE 12.5 MG CAPSULE PO SCH (09:00)
[2017-09-01] MEDS: VALSARTAN 160 MG TABLET PO SCH (09:00)
[2017-09-01] MEDS: ASPIRIN 81 MG TABLET, ENT COATED PO SCH (09:00)
--- NOTE | 2017-09-01 09:51 | PDOC PROGRESS REPORT ---
Subjective Progress Note for:: 09/01/17 Subjective:: pain improving each day. feels weak. no flatus Reason For Visit: PARTIAL LARGE BOWEL OBSTRUCTION Physical Exam Vital Signs: Temp Pulse Resp BP Pulse Ox 98.1 F 101 H 18 140/88 H 93 09/01/17 08:00 09/01/17 08:00 09/01/17 08:00 09/01/17 08:00 09/01/17 08:00 Intake & Output 08/31/17 09/01/17 09/02/17 06:59 06:59 06:59 Intake Total 230 3501 Output Total 1400 2720 Balance -1170 781 Weight 73.1 kg General appearance: PRESENT: no acute distress, cooperative Respiratory exam: PRESENT: clear to auscultation christi Cardiovascular exam: PRESENT: RRR GI/Abdominal exam: PRESENT: other - soft, mildly distended, minimal tenderness. ng bilious output. Results Laboratory Results: 09/01/17 04:17 09/01/17 04:17 08/31/17 08/31/17 08/31/17 06:20 13:20 16:57 WBC 6.6 7.8 RBC 3.81 3.79 Hgb 11.4 L 11.5 L Hct 34.4 L 33.5 L MCV 90 88 MCH 29.8 30.4 MCHC 33.1 34.4 RDW 14.2 H 14.2 H Plt Count 278 288 Seg Neutrophils % 63.4 68.1 Lymphocytes % 19.3 16.2 Monocytes % 7.9 7.1 Eosinophils % 8.5 H 7.6 H Basophils % 0.9 1.0 Absolute Neutrophils 4.2 5.3 Absolute Lymphocytes 1.3 1.3 Absolute Monocytes 0.5 0.6 Absolute Eosinophils 0.6 0.6 Absolute Basophils 0.1 0.1 Sodium Potassium Chloride Carbon Dioxide Anion Gap BUN Creatinine Est GFR ( Amer) Est GFR (Non-Af Amer) Glucose Calcium Urine Color BROWN Urine Appearance CLEAR Urine pH 9.0 Ur Specific [place] 1.013 Urine Protein NEGATIVE Urine Glucose (UA) NEGATIVE Urine Ketones NEGATIVE Urine Blood NEGATIVE Urine Nitrite NEGATIVE Ur Leukocyte Esterase NEGATIVE Urine WBC (Auto) 1 Urine RBC (Auto) 18 09/01/17 09/01/17 04:17 04:17 WBC 6.8 RBC 3.50 L Hgb 10.7 L Hct 31.1 L MCV 89 MCH 30.5 MCHC 34.3 RDW 14.0 Plt Count 279 Seg Neutrophils % 54.8 Lymphocytes % 26.5 Monocytes % 8.0 Eosinophils % 9.6 H Basophils % 1.1 Absolute Neutrophils 3.7 Absolute Lymphocytes 1.8 Absolute Monocytes 0.5 Absolute Eosinophils 0.6 Absolute Basophils 0.1 Sodium 138.6 Potassium 3.8 Chloride 107 Carbon Dioxide 25 Anion Gap 7 BUN 5 L Creatinine 0.71 Est GFR ( Amer) > 60 Est GFR (Non-Af Amer) > 60 Glucose 96 Calcium 8.0 L Urine Color Urine Appearance Urine pH Ur Specific [place] Urine Protein Urine Glucose (UA) Urine Ketones Urine Blood Urine Nitrite Ur Leukocyte Esterase Urine WBC (Auto) Urine RBC (Auto) Assessment & Plan - Diagnosis (1) Large bowel obstruction Is this a current diagnosis for this admission?: Yes Plan: Secondary to left colon diverticulitis with diverticular abscess. Status post extended left hemicolectomy. ileus. pending ct today. stop narcotics. replace K , encourage better ambulation.
[2017-09-01] MEDS: POTASSI CL 20 MEQ/50 ML RIDER 20 MEQ/50 ML RTUPB IV SCH ×2 (13:20→15:57)
--- NOTE | 2017-09-01 15:01 | RADIOLOGY REPORT (SQ) ---
EXAM DESCRIPTION: CT ABD/PELVIS WITH IV ORAL COMPLETED DATE/TIME: 09/01/2017 11:26 am REASON FOR STUDY: postop colectomy, no flatus, POD #5; r/o obstructi K57.92 DVTRCLI OF INTEST, PART UNSP, W/O PERF OR ABSCESS W/O R10.32 LEFT LOWER QUADRANT PAIN COMPARISON: CT abdomen pelvis 08/08/2017 TECHNIQUE: CT scan of the abdomen and pelvis performed using helical scanning technique with dynamic intravenous contrast injection. Patient drank oral contrast. Images reviewed with lung, soft tissue , and bone windows. Reconstructed coronal and sagittal MPR images reviewed. Delayed images for evalua tion of the urinary system also acquired. Additional delayed images through the abdomen pelvis to LL oral contrast passed through the anastomosis. Delayed image sagittal and coronal reconstructions we re also generated. All images stored on PACS. All CT scanners at this facility use dose modulation, iterative reconstruction, and/or weight based d osing when appropriate to reduce radiation dose to as low as reasonably achievable (ALARA). [facility]: Dose Right [facility]: CareDose [facility]: Dose Right [facility]: Teradose 4D [facility]: Play for Job CONTRAST TYPE AND DOSE: contrast/concentration: Isovue 370.00 mg/ml; Total Contrast Delivered: 79.0 ml; Total Saline Delivered: 68.0 ml RENAL FUNCTION: Creatinine 0.71 RADIATION DOSE: CT Rad equipment meets quality standard of care and radiation dose reduction techniq ues were employed. CTDIvol: 7.2 - 8.5 mGy. DLP: 722 mGy-cm.. LIMITATIONS: None. FINDINGS: The patient drank oral contrast. She is post left hemicolectomy. Barely and 4 hour delay images were obtained after oral contrast. On the delayed images, oral contrast is seen throughout t he small bowel ascending and transverse colon down to the pelvic and decide: -colon anastomosis. Th ere is no extravasation of oral contrast at the anastomosis. CT scanning demonstrate a small amount of fluid in the right subphrenic space, right pericolic gutter, right lower quadrant between small bowel loops, and right pelvis. No well-circumscribed locu lated fluid collections are present worrisome for abscess. No CT evidence of bowel obstruction. There is a nasogastric tube with the tip and side port in the s tomach. On initial imaging all, there is questionable wall thickening along the ventral aspect of the gastric antrum on axial images 26-33 and coronal images 28-32. Gastritis or ulcer could not entirely be exc luded. LOWER CHEST: Trace left pleural fluid with mild bibasilar atelectasis LIVER: Normal size. No masses. No dilated ducts. SPLEEN: Normal size. No focal lesions. PANCREAS: No masses. No significant calcifications. No adjacent inflammation or peripancreatic fluid collections. Pancreatic duct not dilated. GALLBLADDER: No identified stones by CT criteria. No inflammatory changes to suggest cholecystitis. ADRENAL GLANDS: No significant masses or asymmetry. RIGHT KIDNEY AND URETER: No solid masses. No significant calcifications. No hydronephrosis or hyd roureter. LEFT KIDNEY AND URETER: No solid masses. No significant calcifications. No hydronephrosis or hydr oureter. AORTA AND VESSELS: No infrarenal abdominal aortic aneurysm. There is an aortic stent with kissing bi lateral proximal common iliac artery stents. Greater than 50% narrowing proximal SMA on sagittal constanza ge 39. RETROPERITONEUM: No retroperitoneal adenopathy, hemorrhage or masses. BOWEL AND PERITONEAL CAVITY: As above APPENDIX: Surgically absent PELVIS: Lopes catheter decompresses the bladder. Small postmenopausal uterus and ovaries. Trace pel michelle free fluid likely postoperative. ABDOMINAL WALL: Midline ventral incision, no hernia. No anterior abdominal wall fluid collection wor risome for abscess. BONES: No significant or acute findings. OTHER: Results reviewed with Dr. Grimes IMPRESSION: Small amount of right-sided intraabdominal and pelvic free fluid post surgery. No findi ngs worrisome for abscess. No leakage of oral contrast in the transverse colon-sigmoid colon anastomosis Persistent gastric wall thickening ventral aspect of the antrum, gastritis or abscess could not be ex cluded. TECHNICAL DOCUMENTATION: JOB ID: [id number] Quality ID # [id number]: Final reports with documentation of one or more dose reduction techniques (e.g., Au tomated exposure control, adjustment of the mA and/or kV according to patient size, use of iterative reconstruction technique) 2010 [employer]- All Rights Reserved
[2017-09-02 04:18] LABS: ABSOLUTE BASOPHILS # (AUTO) 0.1 10^3/uL (0.0-0.2); ABSOLUTE EOSINOPHILS # (AUTO) 0.7 10^3/uL (0.0-0.6); ABSOLUTE LYMPHOCYTES (AUTO) 1.5 10^3/uL (0.5-4.7); ABSOLUTE MONOCYTES (AUTO) 0.6 10^3/uL (0.1-1.4); ABSOLUTE NEUT (AUTO) 4.8 10^3/uL (1.7-8.2); BASOPHILS % (AUTO) 1.1 % (0-2); EOSINOPHILS % (AUTO) 9.7 % (0-6); HEMATOCRIT 33.9 % (36.0-47.0); HEMOGLOBIN 11.6 g/dL (12.0-15.5); LYMPHOCYTES % (AUTO) 19.4 % (13-45); MEAN CORPUSCULAR HEMOGLOBIN 30.4 pg (27.0-33.4); MEAN CORPUSCULAR HGB CONC 34.2 g/dL (32.0-36.0); MEAN CORPUSCULAR VOLUME 89 fl (80-97); MONOCYTES % (AUTO) 7.8 % (3-13); PLATELET COUNT 259 10^3/uL (150-450); RED BLOOD COUNT 3.81 10^6/uL (3.72-5.28); RED CELL DISTRIBUTION WIDTH 14.3 % (11.5-14.0); TOTAL CELLS COUNTED % (AUTO) 100 %; WHITE BLOOD COUNT 7.7 10^3/uL (4.0-10.5)
[2017-09-02 04:27] LABS: ANION GAP 9 (5-19); BLOOD UREA NITROGEN 3 mg/dL (7-20); CALCIUM 8.6 mg/dL (8.4-10.2); CARBON DIOXIDE 26 mmol/L (22-30); CHLORIDE 106 mmol/L (98-107); GLUCOSE 115 mg/dL (75-110); POTASSIUM 3.8 mmol/L (3.6-5.0); SODIUM 140.6 mmol/L (137-145)
[2017-09-02] MEDS: PROMETHAZINE HCL INJ 25 MG/1 ML VIAL IV PRN ×2 (07:52→22:03)
[2017-09-02] MEDS: POTASSI CL 20 MEQ/D5NS 1L 20 MEQ/1,000 ML RTUINJ IV PRN ×2 (07:53→17:23)
--- NOTE | 2017-09-02 08:32 | PDOC PROGRESS REPORT ---
Subjective Progress Note for:: 09/02/17 Subjective:: Headache this morning. Had several liquid bowel movements yesterday. Reason For Visit: PARTIAL LARGE BOWEL OBSTRUCTION Physical Exam Vital Signs: Temp Pulse Resp BP Pulse Ox 98.5 F 80 18 152/71 H 94 09/02/17 03:23 09/02/17 03:23 09/02/17 03:23 09/02/17 03:23 09/02/17 03:23 Intake & Output 09/01/17 09/02/17 09/03/17 06:59 06:59 06:59 Intake Total 3501 1277 Output Total 2720 2825 Balance 781 -1548 Weight 67.9 kg General appearance: PRESENT: no acute distress, cooperative Respiratory exam: PRESENT: clear to auscultation christi Cardiovascular exam: PRESENT: RRR GI/Abdominal exam: PRESENT: other - Soft, mildly distended, minimal tenderness. Active bowel sounds. Results Laboratory Results: 09/02/17 04:00 09/02/17 04:00 09/02/17 09/02/17 04:00 04:00 WBC 7.7 RBC 3.81 Hgb 11.6 L Hct 33.9 L MCV 89 MCH 30.4 MCHC 34.2 RDW 14.3 H Plt Count 259 Seg Neutrophils % 62.0 Lymphocytes % 19.4 Monocytes % 7.8 Eosinophils % 9.7 H Basophils % 1.1 Absolute Neutrophils 4.8 Absolute Lymphocytes 1.5 Absolute Monocytes 0.6 Absolute Eosinophils 0.7 H Absolute Basophils 0.1 Sodium 140.6 Potassium 3.8 Chloride 106 Carbon Dioxide 26 Anion Gap 9 BUN 3 L Creatinine 0.68 Est GFR ( Amer) > 60 Est GFR (Non-Af Amer) > 60 Glucose 115 H Calcium 8.6 Impressions: Abdomen/Pelvis CT 09/01/17 06:00 IMPRESSION: Small amount of right-sided intraabdominal and pelvic free fluid post surgery. No findings worrisome for abscess. No leakage of oral contrast in the transverse colon-sigmoid colon anastomosis Persistent gastric wall thickening ventral aspect of the antrum, gastritis or abscess could not be excluded. Assessment & Plan - Diagnosis (1) Large bowel obstruction Is this a current diagnosis for this admission?: Yes Plan: Secondary to left colon diverticulitis with diverticular abscess. Status post extended left hemicolectomy. CT with no evidence of obstruction. Contrast goes all the way to the colon past the colorectal anastomosis. Uncertain why NG tube output is still remains at 1200. Will try NG clamping trial today. Encourage ambulation.
[2017-09-02] MEDS: ASPIRIN 81 MG TABLET, ENT COATED PO SCH (10:08)
[2017-09-02] MEDS: HYDROCHLOROTHIAZIDE 12.5 MG CAPSULE PO SCH (10:08)
[2017-09-02] MEDS: VALSARTAN 160 MG TABLET PO SCH (10:08)
[2017-09-03] MEDS: POTASSI CL 20 MEQ/D5NS 1L 20 MEQ/1,000 ML RTUINJ IV PRN ×2 (02:35→21:16)
[2017-09-03] MEDS: PROMETHAZINE HCL INJ 25 MG/1 ML VIAL IV PRN ×2 (03:16→21:38)
[2017-09-03 06:52] LABS: ANION GAP 11 (5-19); BLOOD UREA NITROGEN 3 mg/dL (7-20); CALCIUM 8.3 mg/dL (8.4-10.2); CARBON DIOXIDE 23 mmol/L (22-30); CHLORIDE 107 mmol/L (98-107); GLUCOSE 108 mg/dL (75-110); POTASSIUM 3.5 mmol/L (3.6-5.0)
[2017-09-03 07:14] LABS: ABSOLUTE BASOPHILS # (AUTO) 0.1 10^3/uL (0.0-0.2); ABSOLUTE EOSINOPHILS # (AUTO) 0.9 10^3/uL (0.0-0.6); ABSOLUTE LYMPHOCYTES (AUTO) 1.5 10^3/uL (0.5-4.7); ABSOLUTE MONOCYTES (AUTO) 0.6 10^3/uL (0.1-1.4); ABSOLUTE NEUT (AUTO) 3.8 10^3/uL (1.7-8.2); BASOPHILS % (AUTO) 1.3 % (0-2); EOSINOPHILS % (AUTO) 12.8 % (0-6); HEMATOCRIT 34.2 % (36.0-47.0); HEMOGLOBIN 11.7 g/dL (12.0-15.5); LYMPHOCYTES % (AUTO) 21.9 % (13-45); MEAN CORPUSCULAR HEMOGLOBIN 30.4 pg (27.0-33.4); MEAN CORPUSCULAR HGB CONC 34.4 g/dL (32.0-36.0); MEAN CORPUSCULAR VOLUME 88 fl (80-97); MONOCYTES % (AUTO) 9.2 % (3-13); PLATELET COUNT 260 10^3/uL (150-450); RED BLOOD COUNT 3.87 10^6/uL (3.72-5.28); RED CELL DISTRIBUTION WIDTH 14.1 % (11.5-14.0); SEGMENTED NEUTROPHILS % (AUTO) 54.8 % (42-78); TOTAL CELLS COUNTED % (AUTO) 100 %
--- NOTE | 2017-09-03 08:14 | RADIOLOGY REPORT (SQ) ---
EXAM DESCRIPTION: ABDOMEN 2 VIEWS COMPLETED DATE/TIME: 09/03/2017 7:43 am REASON FOR STUDY: ileus K57.92 DVTRCLI OF INTEST, PART UNSP, W/O PERF OR ABSCESS W/O R10.32 LEFT L OWER QUADRANT PAIN COMPARISON: None. NUMBER OF VIEWS: Two views. TECHNIQUE: Supine and erect/decubitus radiographic images of the abdomen acquired. LIMITATIONS: None. FINDINGS: FREE AIR: No pneumoperitoneum. Left basilar discoid atelectasis. LUNG BASES: Clear. BOWEL GAS PATTERN: Nonobstructive pattern. No dilated loops or air fluid levels. CALCIFICATIONS: No suspicious calcifications. SOFT TISSUES: No gross mass or suggestion of organomegaly. HARDWARE: A aortic iliac stent in place. BONES: No significant abnormality identified. OTHER: NG tube overlies stomach. Anterior abdominal wall surgical clips surgical clips right lower a bdomen from bowel resection. Contrast noted within the right and transverse colon. Gas within the r ectum seen. IMPRESSION: Left basilar discoid atelectasis. Nonspecific bowel-gas pattern. TECHNICAL DOCUMENTATION: JOB ID: [id number]- All Rights Reserved
--- NOTE | 2017-09-03 09:14 | PDOC PROGRESS REPORT ---
Subjective Progress Note for:: 09/03/17 Subjective:: Feels well. Passing gas and had small bowel movement. Hungry. Reason For Visit: PARTIAL LARGE BOWEL OBSTRUCTION Physical Exam Vital Signs: Temp Pulse Resp BP Pulse Ox 98.4 F 74 18 128/75 H 99 09/03/17 07:25 09/03/17 07:25 09/03/17 07:25 09/03/17 07:25 09/03/17 07:25 Intake & Output 09/02/17 09/03/17 09/04/17 06:59 06:59 06:59 Intake Total 1277 1140 Output Total 2825 2300 Balance -1548 -1160 Weight 67.9 kg 68.5 kg General appearance: PRESENT: no acute distress, cooperative Respiratory exam: PRESENT: clear to auscultation christi Cardiovascular exam: PRESENT: RRR GI/Abdominal exam: PRESENT: other - Soft, nondistended, minimal tenderness. Wound clean dry and intact. Active bowel sounds Extremities exam: PRESENT: other - No swelling and no tenderness. Results Laboratory Results: 09/03/17 03:58 09/03/17 03:58 09/03/17 09/03/17 03:58 03:58 WBC 7.0 RBC 3.87 Hgb 11.7 L Hct 34.2 L MCV 88 MCH 30.4 MCHC 34.4 RDW 14.1 H Plt Count 260 Seg Neutrophils % 54.8 Lymphocytes % 21.9 Monocytes % 9.2 Eosinophils % 12.8 H Basophils % 1.3 Absolute Neutrophils 3.8 Absolute Lymphocytes 1.5 Absolute Monocytes 0.6 Absolute Eosinophils 0.9 H Absolute Basophils 0.1 Sodium 141.0 Potassium 3.5 L Chloride 107 Carbon Dioxide 23 Anion Gap 11 BUN 3 L Creatinine 0.66 Est GFR ( Amer) > 60 Est GFR (Non-Af Amer) > 60 Glucose 108 Calcium 8.3 L 08/31/17 13:20 Lopes Catheter Urine Culture - Final NO GROWTH 2 DAYS Impressions: Abdomen/Pelvis CT 09/01/17 06:00 IMPRESSION: Small amount of right-sided intraabdominal and pelvic free fluid post surgery. No findings worrisome for abscess. No leakage of oral contrast in the transverse colon-sigmoid colon anastomosis Persistent gastric wall thickening ventral aspect of the antrum, gastritis or abscess could not be excluded. Abdomen X-Ray 09/03/17 07:00 IMPRESSION: Left basilar discoid atelectasis. Nonspecific bowel-gas pattern. Assessment & Plan - Diagnosis (1) Large bowel obstruction Is this a current diagnosis for this admission?: Yes Plan: Secondary to left colon diverticulitis with diverticular abscess. Status post extended left hemicolectomy. Patient with good bowel function despite having some dark NG output. She may have some irritation in her stomach with the NG. Abdominal x-ray looks good. Will DC her NG, place her on Pepcid, and start clear liquids. If she does well with clears will advance diet. Keep IV fluids going until we know she is tolerating a diet well. And possibly discharge her tomorrow. If she has nausea and vomiting on a diet then she will need a upper endoscopy.
[2017-09-03] MEDS: ASPIRIN 81 MG TABLET, ENT COATED PO SCH (10:25)
[2017-09-03] MEDS: FAMOTIDINE INJ/PF 20 MG/2 ML SDV IV SCH ×2 (10:26→21:16)
[2017-09-03] MEDS: HYDROCHLOROTHIAZIDE 12.5 MG CAPSULE PO SCH (10:26)
[2017-09-03] MEDS: POTASSI CL 20 MEQ/50 ML RIDER 20 MEQ/50 ML RTUPB IV SCH ×2 (10:29→13:55)
[2017-09-03] MEDS: VALSARTAN 160 MG TABLET PO SCH (10:32)
[2017-09-04 05:40] LABS: ABSOLUTE BASOPHILS # (AUTO) 0.1 10^3/uL (0.0-0.2); ABSOLUTE EOSINOPHILS # (AUTO) 1.1 10^3/uL (0.0-0.6); ABSOLUTE LYMPHOCYTES (AUTO) 2.3 10^3/uL (0.5-4.7); ABSOLUTE MONOCYTES (AUTO) 0.8 10^3/uL (0.1-1.4); ABSOLUTE NEUT (AUTO) 4.2 10^3/uL (1.7-8.2); BASOPHILS % (AUTO) 1.2 % (0-2); EOSINOPHILS % (AUTO) 13.3 % (0-6); HEMATOCRIT 33.6 % (36.0-47.0); HEMOGLOBIN 11.6 g/dL (12.0-15.5); LYMPHOCYTES % (AUTO) 27.2 % (13-45); MEAN CORPUSCULAR HGB CONC 34.4 g/dL (32.0-36.0); MEAN CORPUSCULAR VOLUME 90 fl (80-97); MONOCYTES % (AUTO) 9.2 % (3-13); RED BLOOD COUNT 3.74 10^6/uL (3.72-5.28); RED CELL DISTRIBUTION WIDTH 14.6 % (11.5-14.0); SEGMENTED NEUTROPHILS % (AUTO) 49.1 % (42-78); TOTAL CELLS COUNTED % (AUTO) 100 %; WHITE BLOOD COUNT 8.6 10^3/uL (4.0-10.5)
[2017-09-04 05:48] LABS: PLATELET COUNT 356 10^3/uL (150-450)
[2017-09-04 06:45] LABS: ANION GAP 11 (5-19); BLOOD UREA NITROGEN 3 mg/dL (7-20); CALCIUM 8.5 mg/dL (8.4-10.2); CARBON DIOXIDE 22 mmol/L (22-30); CHLORIDE 106 mmol/L (98-107); GLUCOSE 82 mg/dL (75-110); POTASSIUM 3.4 mmol/L (3.6-5.0); SODIUM 139.1 mmol/L (137-145)
[2017-09-04 08:46] VITALS: BP 129/85
--- NOTE | 2017-09-04 09:05 | PDOC PROGRESS REPORT ---
Subjective Progress Note for:: 09/04/17 Subjective:: comfortable Reason For Visit: PARTIAL LARGE BOWEL OBSTRUCTION Physical Exam Vital Signs: Temp Pulse Resp BP Pulse Ox 98.6 F 81 18 129/85 H 98 09/04/17 07:51 09/04/17 07:51 09/04/17 07:51 09/04/17 07:51 09/04/17 07:51 Intake & Output 09/03/17 09/04/17 09/05/17 06:59 06:59 06:59 Intake Total 1140 1350 Output Total 2300 3300 Balance -1160 -1950 Weight 68.5 kg General appearance: PRESENT: no acute distress GI/Abdominal exam: PRESENT: soft, other - wound clean Results Laboratory Results: 09/04/17 04:09 09/04/17 06:11 09/04/17 09/04/17 09/04/17 04:09 04:09 06:11 WBC 8.6 RBC 3.74 Hgb 11.6 L Hct 33.6 L MCV 90 MCH 31.0 MCHC 34.4 RDW 14.6 H Plt Count 356 Seg Neutrophils % 49.1 Lymphocytes % 27.2 Monocytes % 9.2 Eosinophils % 13.3 H Basophils % 1.2 Absolute Neutrophils 4.2 Absolute Lymphocytes 2.3 Absolute Monocytes 0.8 Absolute Eosinophils 1.1 H Absolute Basophils 0.1 Sodium Cancelled 139.1 Potassium Cancelled 3.4 L Chloride Cancelled 106 Carbon Dioxide Cancelled 22 Anion Gap Cancelled 11 BUN Cancelled 3 L Creatinine Cancelled 0.69 Est GFR ( Amer) Cancelled > 60 Est GFR (Non-Af Amer) Cancelled > 60 Glucose Cancelled 82 Calcium Cancelled 8.5 Impressions: Abdomen/Pelvis CT 09/01/17 06:00 IMPRESSION: Small amount of right-sided intraabdominal and pelvic free fluid post surgery. No findings worrisome for abscess. No leakage of oral contrast in the transverse colon-sigmoid colon anastomosis Persistent gastric wall thickening ventral aspect of the antrum, gastritis or abscess could not be excluded. Abdomen X-Ray 09/03/17 07:00 IMPRESSION: Left basilar discoid atelectasis. Nonspecific bowel-gas pattern. Assessment & Plan - Diagnosis (1) Large bowel obstruction Is this a current diagnosis for this admission?: Yes - Plan Summary Plan Summary: A/ S/o subtotal colectomy Patient doing well flatus and stolls present P/ Home today F/u Dr. Carroll next week Shower only Low residue diet Tylenol for pain only
[2017-09-04] MEDS: FAMOTIDINE INJ/PF 20 MG/2 ML SDV IV SCH (09:09)
[2017-09-04] MEDS: ASPIRIN 81 MG TABLET, ENT COATED PO SCH (09:13)
[2017-09-04] MEDS: VALSARTAN 160 MG TABLET PO SCH (09:13)
[2017-09-04] MEDS: HYDROCHLOROTHIAZIDE 12.5 MG CAPSULE PO SCH (09:14)
--- NOTE | 2017-09-04 09:41 | DISCHARGE SUMMARY E ---
Discharge Summary NAME: AILIN STACK : 1955 AGE: 62Y ADMITTED: 08/26/2017 DISCHARGED: 09/04/2017 FINAL DIAGNOSIS: Obstructing sigmoid diverticulosis. PROCEDURE: On August 26 the patient underwent a subtotal colectomy with primary anastomosis. COMPLICATIONS: None. HOSPITAL COURSE: This is a 62-year-old female admitted to the hospital with a large bowel obstruction. The patient underwent surgery on August 26 and a large mass was identified at the level of the sigmoid left colon. 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 The patient underwent a subtotal colectomy with primary anastomosis. The patient's postop course was then characterized by nasogastric tube insertion and Lopes catheter placement. She remained n.p.o. for several days until finally bowel function returned with liquid stools initially and semisolid stools afterward. Nasogastric tube was then removed. Her diet was advanced from clear liquids to low residue diet. On the day of discharge, the patient had no complaints. She was comfortable. Vitals signs were stable and she was afebrile. Physical exam was unremarkable with lungs clear bilaterally. Heart regular rhythm and rate today. Abdomen is soft with incision clean, dry, and intact. She was able to tolerate p.o. well. DISCHARGE INSTRUCTIONS: The patient was discharged to home on September 04. She was given a followup appointment with Dr. Sierra in about a week. She was instructed to shower only until the loly are in place or she sees Dr. Sierra in the office. She was instructed to follow a low residue diet. She is to use Tylenol p.r.n. for pain. She was instructed to resume her home medications. Activities as tolerated. No straining or lifting more than 10 pounds for about 3 months. DICTATING PHYSICIAN: LAVERNE PETTY M.D. [id number] PHY#: [id number] ID: [id number] JOB#: [id number] ACCT: [id number] cc:BETY SIERRA M.D., GIOVANNI M.D. >
== END 2017-09-04 10:47 | disposition home or self-care (01) | DRG 330 ==
LOC: END 08:46 → 2S 11:14
PROVIDERS: ADMIT Surgery; ATTEND Surgery
PROC: 0DJD8ZZ Inspection of Lower Intestinal Tract, Via Natural or Artificial Opening Endoscopic (ICD-10-PCS; 2017-08-26)
PROC: 0DTN0ZZ Resection of Sigmoid Colon, Open Approach (ICD-10-PCS; 2017-08-27)
PROC: 0UB10ZZ Excision of Left Ovary, Open Approach (ICD-10-PCS; 2017-08-27)
PROC: 0T788DZ Dilation of Bilateral Ureters with Intraluminal Device, Via Natural or Artificial Opening Endoscopic (ICD-10-PCS; 2017-08-27)
PROC: 0DTN0ZZ Resection of Sigmoid Colon, Open Approach (ICD-10-PCS; principal; 2017-08-27 11:45)
PROC: 0DTG0ZZ Resection of Left Large Intestine, Open Approach (ICD-10-PCS; 2017-08-27 11:45)
DX: K57.20 Diverticulitis of large intestine with perforation and abscess without bleeding (principal); G47.30 Sleep apnea, unspecified; I10 Essential (primary) hypertension; K57.92 Diverticulitis of intestine, part unspecified, without perforation or abscess without bleeding; K62.4 Stenosis of anus and rectum; Z12.11 Encounter for screening for malignant neoplasm of colon; Z87.891 Personal history of nicotine dependence; Z79.02 Long term (current) use of antithrombotics/antiplatelets; Z79.899 Other long term (current) drug therapy
CPT/HCPCS: 36415; 45378; 74019; 74177; 80048; 81001; 82378; 840; 85025; 85027; 87070; 87075; 87077; 87086; 87186; 87205; 88304; 88307; J0171; J0330; J1100; J1170; J1610; J1885; J1956; J2250; J2310; J2405; J2550; J2704; J2765; J3010; J3480; J3490; J7030; S0028

== ENCOUNTER → 2017-09-05 | Outpatient (CLI) | payer BC ==
--- NOTE | 2017-09-05 15:31 | RADIOLOGY REPORT (SQ) ---
EXAM DESCRIPTION: ACUTE ABDOMEN SERIES COMPLETED DATE/TIME: 09/05/2017 3:16 pm REASON FOR STUDY: R10.9 UNSPECIFIED ABDOMINAL PAIN K91.89 OTH POSTPROCEDURAL COMPLICATIONS AN R10.9 UNSPECIFIED ABDOMINAL PAIN K91.89 OTH POSTPROCEDURAL COMPLICATIONS AND DISORDERS OF DGS COMPARISON: Supine and erect plain films abdomen 09/03/2017 CT abdomen pelvis 09/01/2017, 08/08/2017 NUMBER OF VIEWS: Three views. TECHNIQUE: Frontal chest, supine abdomen and upright abdomen radiographic images acquired. LIMITATIONS: None. FINDINGS: CHEST: Minimal left retrocardiac bandlike atelectasis. No fluffy alveolar infiltrates wor risome for edema or pneumonia. No pleural effusion. No pneumothorax. Cardiac silhouette size, arleth unremarkable. FREE AIR: None. No abnormal gas collections. BOWEL GAS PATTERN: There is a nonspecific bowel gas pattern with air-fluid level in stomach, left upp er quadrant small bowel loops, and hepatic flexure colon. CALCIFICATIONS: No suspicious calcifications. HARDWARE: Midline anterior abdominal wall loly. Right lower quadrant surgical clips. Old left il iac artery stents. SOFT TISSUES: No gross mass or suggestion of organomegaly. BONES: No acute fracture. No worrisome bone lesions. OTHER: No other significant finding. IMPRESSION: Air-fluid levels in stomach small bowel and hepatic flexure of colon likely reflecting a n ileus. TECHNICAL DOCUMENTATION: JOB ID: [id number] [employer]- All Rights Reserved Reading location - IP/workstation name: [email or web address]
== END ==
LOC: RAD 14:32
PROVIDERS: ATTEND Physician Assistant Surgical
DX: R10.9 Unspecified abdominal pain (principal); K91.89 Other postprocedural complications and disorders of digestive system
CPT/HCPCS: 74022

== ENCOUNTER 2017-10-03 10:50 | Day surgery (SDC) | payer BC ==
[2017-10-03 11:36] LABS: HEMATOCRIT 36.6 % (36.0-47.0); HEMOGLOBIN 12.5 g/dL (12.0-15.5); MEAN CORPUSCULAR HEMOGLOBIN 30.7 pg (27.0-33.4); MEAN CORPUSCULAR HGB CONC 34.2 g/dL (32.0-36.0); MEAN CORPUSCULAR VOLUME 90 fl (80-97); PLATELET COUNT 308 10^3/uL (150-450); RED BLOOD COUNT 4.09 10^6/uL (3.72-5.28); RED CELL DISTRIBUTION WIDTH 14.4 % (11.5-14.0); WHITE BLOOD COUNT 5.1 10^3/uL (4.0-10.5)
[2017-10-03 11:55] LABS: ANION GAP 11 (5-19); BLOOD UREA NITROGEN 7 mg/dL (7-20); CALCIUM 10.2 mg/dL (8.4-10.2); CARBON DIOXIDE 25 mmol/L (22-30); CHLORIDE 105 mmol/L (98-107); GLUCOSE 88 mg/dL (75-110); POTASSIUM 4.1 mmol/L (3.6-5.0); SODIUM 140.6 mmol/L (137-145)
[2017-10-03] MEDS ORDERED: ONDANSETRON HCL INJ/PF 4 MG/2 ML SDV ONE (12:07)
[2017-10-03] MEDS ORDERED: GLYCOPYRROLATE INJ 0.4 MG/2 ML VIAL ONE (12:08)
[2017-10-03] MEDS ORDERED: NALOXONE HCL INJ/PF 0.4 MG/1 ML SDV ONE (12:08)
[2017-10-03] MEDS ORDERED: FLUMAZENIL INJ 0.5 MG/5 ML VIAL ONE (12:09)
[2017-10-03] MEDS ORDERED: GLUCAGON,HUMAN RECOMB 1 MG INJ ONE (12:09)
[2017-10-03] MEDS ORDERED: EPINEPHRINE INJ 1 MG/10 ML DISP.SYRIN ONE (12:09)
[2017-10-03] MEDS ORDERED: LIDOCAINE 2% JELLY 5 ML TUBE ONE (12:31)
[2017-10-03] MEDS: MIDAZOLAM 2 MG/2 ML INJ ONE ×2 (12:40→12:44)
[2017-10-03] MEDS: FENTANYL CITRATE INJ/PF 100 MCG/2 ML AMPUL ONE ×2 (12:42→13:19)
--- NOTE | 2017-10-03 14:29 | Operative Report ---
Operative Report DATE OF SURGERY: 10/03/17 PREOPERATIVE DIAGNOSIS: Gastritis, obstructive diverticulitis status post partial colon resection. POSTOPERATIVE DIAGNOSIS: Gastritis, duodenal polyp, rectal polyp, transverse colon polyp, anal stenosis. OPERATION: Esophagogastroduodenoscopy with biopsy of the antrum and biopsy of duodenal polyp. Colonoscopy with snare polypectomy of rectal polyp. Saline injection with snare polypectomy of transverse colon polyp. SURGEON: TEE SIERRA ANESTHESIA: Moderate Sedation TISSUE REMOVED OR ALTERED: Antral biopsy. Duodenal polyp biopsy. Rectal polyp. Transverse colon polyp. COMPLICATIONS: None ESTIMATED BLOOD LOSS: Minimal INTRAOPERATIVE FINDINGS: Superficial punctate erosions throughout the stomach. 1 cm sessile protrusion at the junction between the first and second portion of the duodenum with a polypoid appearance. Half centimeter sessile polyp in the proximal rectum. 1 cm sessile polyp in the mid transverse colon. Healed transverse colorectal anastomosis with slight friability. Anal stenosis with excess perianal skin circumferentially. PROCEDURE: Informed consent was obtained. Patient was brought to the endoscopy suite. IV sedation with Versed and fentanyl was administered. Endoscope was passed via the patient's mouth it was fed down to the second portion of the duodenum. At the first portion of duodenum right at the junction of the second portion of the duodenum there was a prominent fold with a polypoid appearance to this area measuring about a centimeter in size. It was difficult to tell whether this was a true polyp versus a prominent fold. This area was difficult to biopsy but after multiple technical measures biopsies were obtained. The gastric mucosa has scattered very superficial erosions. Otherwise the gastric mucosa appeared normal. Antral biopsies were taken. Retroflexed view demonstrated no significant hiatal hernia. Esophagus appeared normal. Patient was repositioned. There was excessive circumferential perianal skin. There was anal stenosis. After using Xylocaine jelly I was able to insert my fifth finger and gently dilate the anus allowing me to insert my index finger. This was followed by insertion of the colonoscope. The colonoscope was passed to the cecum. The bowel prep was fair requiring irrigation and aspiration to obtain adequate visualization. The cecum appeared normal. The right colon appeared normal. The hepatic flexure and the very proximal transverse colon appeared normal. At the mid transverse colon there was a 1 cm sessile polyp. About 4 cc of saline was injected into the submucosal region at the base of the polyp raising the polyp for a safe polypectomy. Using a snare polypectomy technique the polyp was removed. It was retrieved. Several centimeters distal to this site there was evidence of colorectal anastomosis with a slight friability at the anastomosis, otherwise well-healed. No stenosis. At the proximal rectum there was 1/2 cm sessile polyp which was snare polypectomied and the specimen retrieved. Remainder of the rectum appeared normal. Patient tolerated procedure well with no apparent complications and was taken to the recovery area in stable condition. Evidence of mild erosive gastritis seen by endoscopy. Will await antral biopsy results. Possible duodenal polyp versus a prominent fold at the junction between the first and second portion of the duodenum. Will await biopsy results. Rectal polyp status post snare polypectomy. Transverse colon polyp status post snare polypectomy. Will follow up with the biopsy results. Recommend repeat colonoscopy in 2 years.
--- NOTE | 2017-10-03 14:38 | Discharge Summary ---
Discharge Summary (SDC) - Discharge Final Diagnosis: Gastritis, duodenal polyp, transverse colon polyp, rectal polyp. Anal stenosis. Date of Surgery: 10/03/17 Discharge Date: 10/03/17 Condition: Good Treatment or Instructions: Esophagogastroduodenoscopy with antral biopsy and duodenal polyp biopsy. Colonoscopy with snare polypectomy of rectal polyp and saline injection assisted snare polypectomy of transverse colon polyp. May discharge patient home when met discharge criteria. Follow-up with me this coming Friday. Hold Plavix for 1 week. If no bleeding after 1 week, may resume Plavix. Referrals: AMANDA ARTHUR MD [Primary Care Provider] - Discharge Diet: As Tolerated Discharge Activity: Activity As Tolerated Report the Following to Your Physician Immediately: Increase in Pain, Unusual Bleeding
[2017-10-03 14:56] VITALS: BP 146/596
== END 2017-10-03 15:00 | disposition home or self-care (01) ==
LOC: END 10:50
PROVIDERS: ATTEND Surgery
DX: K29.70 Gastritis, unspecified, without bleeding (principal); K29.80 Duodenitis without bleeding; K63.5 Polyp of colon; D12.3 Benign neoplasm of transverse colon; K62.4 Stenosis of anus and rectum; K31.7 Polyp of stomach and duodenum; K25.9 Gastric ulcer, unspecified as acute or chronic, without hemorrhage or perforation; Z87.19 Personal history of other diseases of the digestive system; Z90.49 Acquired absence of other specified parts of digestive tract; G47.30 Sleep apnea, unspecified; Z87.891 Personal history of nicotine dependence; Z79.82 Long term (current) use of aspirin; Z79.02 Long term (current) use of antithrombotics/antiplatelets; Z79.899 Other long term (current) drug therapy; Z88.1 Allergy status to other antibiotic agents
CPT/HCPCS: 43239; 45385; 45381; 36415; 85027; 80048; 88342 ×2; 88305 ×2; J2250; J3010; 45380; J0171; J1610; J2310; J2405; J3490

== ENCOUNTER 2018-06-05 13:52 | Emergency (ER) | payer BC ==
--- NOTE | 2018-06-05 14:39 | ER Document Report ---
ED Medical Screen (RME) - General Chief Complaint: Blood Pressure Problem Stated Complaint: BLOOD PRESSURE ISSUES Time Seen by Provider: 06/05/18 14:26 Notes: This 8-year-old female patient comes emergency room for elevated blood pressure. She has been checking her pressure regularly since it was found to be running a little elevated over the past few weeks. She does take Diovan HCTZ 160/12.5, and states she possibly took 2 doses this morning. She found her pressure was high at home so she went to an urgent care where they found a pressure of 226/89 and referred her to the emergency room. At triage she was found to have elevated blood pressure in the right arm. She has a left subclavian arterial stent placed in 2007, so her blood pressures are always much lower on the left side than the right side. These elevated pressures are asymptomatic. She had an angioplasty about 3 weeks ago and blood pressure has been running high on the follow-up visits which she initially attributed to the pain she was having. I have greeted and performed a rapid initial assessment of this patient. A comprehensive ED assessment and evaluation of the patient, analysis of test results and completion of the medical decision making process will be conducted by additional ED providers. TRAVEL OUTSIDE OF THE [place] IN LAST 30 DAYS: No - Related Data Allergies/Adverse Reactions: doxycycline Allergy (Unknown, Verified 06/05/18 13:54) UNKNOWN Past Medical History - Social History Chew tobacco use (# tins/day): No Frequency of alcohol use: None Drug Abuse: None - Past Medical History Cardiac Medical History: Reports: Hx Hypertension Denies: Hx Coronary Artery Disease, Hx Heart Attack Pulmonary Medical History: Denies: Hx Asthma, Hx Bronchitis, Hx COPD, Hx Pneumonia Neurological Medical History: Reports: Hx Cerebrovascular Accident - 2007 L SIDED WEAKNESS. Denies: Hx Seizures Renal/ Medical History: Denies: Hx Peritoneal Dialysis GI Medical History: Denies: Hx Hepatitis, Hx Hiatal Hernia, Hx Ulcer Musculoskeltal Medical History: Denies Hx Arthritis Infectious Medical History: Denies: Hx Hepatitis Past Surgical History: Denies: Hx Hysterectomy, Hx Mastectomy, Hx Open Heart Surgery, Hx Pacemaker - Immunizations Hx Diphtheria, Pertussis, Tetanus Vaccination: Yes History of Influenza Vaccine for 04/2017 - 09/2017 Season: Yes Influenza Administration Date for 04/2017 - 09/2017 Season: 06/13/17 Physical Exam - Vital signs Vitals: Temp Pulse Resp BP Pulse Ox 97.5 F 65 16 211/79 H 97 06/05/18 14:01 06/05/18 14:01 06/05/18 14:01 06/05/18 14:01 06/05/18 14:01 Course - Vital Signs Vital signs: Temp Pulse Resp BP Pulse Ox 97.5 F 65 16 211/79 H 97 06/05/18 14:01 06/05/18 14:01 06/05/18 14:01 06/05/18 14:01 06/05/18 14:01 Doctor's Discharge - Discharge Referrals: AMANDA ARTHUR MD [Primary Care Provider] - Follow up as needed
[2018-06-05 15:19] LABS: ABSOLUTE MONOCYTES (AUTO) 0.5 10^3/uL (0.1-1.4); TOTAL CELLS COUNTED % (AUTO) 100 %
--- NOTE | 2018-06-05 15:19 | RADIOLOGY REPORT (SQ) ---
EXAM DESCRIPTION: CHEST 2 VIEWS COMPLETED DATE/TIME: 06/05/2018 3:10 pm REASON FOR STUDY: Acutely elevated blood pressure COMPARISON: 03/09/2009. EXAM PARAMETERS: NUMBER OF VIEWS: two views TECHNIQUE: Digital Frontal and Lateral radiographic views of the chest acquired. RADIATION DOSE: NA LIMITATIONS: none FINDINGS: LUNGS AND PLEURA: Linear scarring in the left lung base. No focal infiltrates, masses or pneumothorax. No pleural effusion. MEDIASTINUM AND HILAR STRUCTURES: No masses or contour abnormalities. HEART AND VASCULAR STRUCTURES: Heart normal size. No evidence for failure. BONES: No acute findings. HARDWARE: None in the chest. OTHER: No other significant finding. IMPRESSION: NO ACUTE RADIOGRAPHIC FINDING IN THE CHEST. TECHNICAL DOCUMENTATION: JOB ID: [id number] [employer]- All Rights Reserved Reading location - IP/workstation name: [email or web address]
[2018-06-05 15:24] LABS: APPEARANCE,URINE CLEAR; BILIRUBIN,URINE NEGATIVE (NEGATIVE); COLOR,URINE COLORLESS; GLUCOSE, URINE NEGATIVE (NEGATIVE); KETONES,URINE NEGATIVE (NEGATIVE); LEUKOCYTE ESTERASE,URINE NEGATIVE (NEGATIVE); NITRITE,URINE NEGATIVE (NEGATIVE); PROTEIN,URINE NEGATIVE (NEGATIVE); URINE SPECIFIC GRAVITY 1.004; UROBILINOGEN,URINE NEGATIVE mg/dL (<2.0)
[2018-06-05 15:30] LABS: ABSOLUTE BASOPHILS # (AUTO) 0.2 10^3/uL (0.0-0.2); ABSOLUTE EOSINOPHILS # (AUTO) 0.4 10^3/uL (0.0-0.6); ABSOLUTE LYMPHOCYTES (AUTO) 2.5 10^3/uL (0.5-4.7); ABSOLUTE NEUT (AUTO) 4.3 10^3/uL (1.7-8.2); BASOPHILS % (AUTO) 2.7 % (0-2); EOSINOPHILS % (AUTO) 4.6 % (0-6); HEMATOCRIT 43.8 % (36.0-47.0); HEMOGLOBIN 15.6 g/dL (12.0-15.5); LYMPHOCYTES % (AUTO) 31.9 % (13-45); MEAN CORPUSCULAR HEMOGLOBIN 33.2 pg (27.0-33.4); MEAN CORPUSCULAR HGB CONC 35.6 g/dL (32.0-36.0); MEAN CORPUSCULAR VOLUME 93 fl (80-97); MONOCYTES % (AUTO) 6.8 % (3-13); PLATELET COUNT 287 10^3/uL (150-450); RED CELL DISTRIBUTION WIDTH 12.8 % (11.5-14.0)
[2018-06-05 15:31] LABS: ALANINE AMINOTRANSFERASE 26 U/L (9-52); ALBUMIN 4.6 g/dL (3.5-5.0); ALKALINE PHOSPHATASE 74 U/L (38-126); ANION GAP 12 (5-19); ASPARTATE AMINO TRANSFERASE 23 U/L (14-36); BILIRUBIN,DIRECT 0.2 mg/dL (0.0-0.4); BILIRUBIN,TOTAL 0.6 mg/dL (0.2-1.3); BLOOD UREA NITROGEN 11 mg/dL (7-20); CARBON DIOXIDE 26 mmol/L (22-30); CHLORIDE 100 mmol/L (98-107); CREATINE KINASE 50 U/L (30-135); GLUCOSE 93 mg/dL (75-110); POTASSIUM 4.3 mmol/L (3.6-5.0); SODIUM 138.2 mmol/L (137-145); TOTAL PROTEIN 7.7 g/dL (6.3-8.2)
[2018-06-05] MEDS ORDERED: LORAZEPAM INJ 2 MG/1 ML VIAL IV ONE (16:25)
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
[2018-06-05 18:24] VITALS: BP 154/65
--- NOTE | 2018-06-05 19:17 | EKG REPORT ---
SEVERITY:- BORDERLINE ECG - SINUS RHYTHM BORDERLINE T ABNORMALITIES, ANT-LAT LEADS : Confirmed by: Yue Escalera MD 05-Jun-2018 19:16:22
== END 2018-06-05 18:26 | disposition home or self-care (01) ==
LOC: ER 13:52
DX: I10 Essential (primary) hypertension (principal); F41.9 Anxiety disorder, unspecified; H92.01 Otalgia, right ear; F17.210 Nicotine dependence, cigarettes, uncomplicated; Z90.49 Acquired absence of other specified parts of digestive tract; Z79.899 Other long term (current) drug therapy
CPT/HCPCS: 93005; 99406; 99284; 96374; 36415; 82550; 84443; 85025; 80053; 81001; 84484; 71046; 93010; J2060

== ENCOUNTER → 2020-04-27 | Day surgery (SDC) | payer BC ==
[~2020-04-27] MED LIST changes: -CHONDR SU A NA/HYALUR INTRAOC KIT (SURGICARE) ONE; -EPINEPHRINE INJ/PF 1 MG/1 ML AMPULE ONE; -KETOROLAC TROMETHAMINE 0.45% 4 DROP/0.4 ML DROPERETTE OS PRN; -LIDOCAINE 1% INJ-PF (10 MG/ML) 30 ML SDV ONE; +LIDOCAINE 1%/EPINEPHRINE INJ 20 ML VIAL ONE
--- NOTE | 2020-04-27 11:18 | Discharge Summary ---
Discharge Summary (SDC) - Discharge Final Diagnosis: Microcalcifications left breast Date of Surgery: 04/27/20 Discharge Date: 04/27/20 Condition: Good Treatment or Instructions: Wear compressive bra; take Tylenol Motrin as needed pain; up with [facility] in 1 to 2 weeks. We will call patient with the pathology report Discharge Diet: As Tolerated Discharge Activity: Activity As Tolerated Home Care Assistance: None Needed Report the Following to Your Physician Immediately: Shortness of Breath, Increas e in Pain, Fever over 101 Degrees
--- NOTE | 2020-04-27 11:23 | Operative Report ---
Operative Report DATE OF SURGERY: 04/27/20 PREOPERATIVE DIAGNOSIS: Extensive zone of micro calcifications left breast POSTOPERATIVE DIAGNOSIS: Same OPERATION: 1. Stereotactically directed incisional mammotomy and core biopsies left breast. 2. Interpretation of specimen radiograph. 3. Placement of clip marker left breast SURGEON: DEBORAH CHAIDEZ ANESTHESIA: Local TISSUE REMOVED OR ALTERED: Multiple cores left breast COMPLICATIONS: None ESTIMATED BLOOD LOSS: Minimal INTRAOPERATIVE FINDINGS: See below PROCEDURE: Patient was taken to the holding area to the stereotactic room of the radiology department where the left breast was placed in compression. A craniocaudal approach was used to localize the microcalcifications deep central aspect of the left breast. Surgical plan and surgical timeout were conducted. The surface of the left breast was exposed, then prepped with Betadine. The skin was anesthetized 1% plain lidocaine. Plus and -15 degrees stereotactic views were used to localize the target area in the deep central aspect of the left breast. A small incision was made with a #11 blade, and the mammotome advanced the appropriate depth, pre and post fire films show good alignment between the microcalcifications at the end of the mammotome. We now completed approximately 10-12 core biopsies in a circumferential fashion. This was well-tolerated by the patient. All cores were placed on a Stormy dish imaged with a specimen radiograph machine. This demonstrated retention of substantial amounts of breast tissue, with extensive microcalcifications. We felt sampling was adequate. A clip marker was deployed into the mammotomy cavity, and post deployment image showed retention of clip in the cavity. Patient tolerated the procedure well. Mammotome and introducing sheath removed, and compression dressing applied. Discharge instructions provided.
== END ==
LOC: RAD 10:00
PROVIDERS: ATTEND Surgery
DX: R92.0 Mammographic microcalcification found on diagnostic imaging of breast (principal); R92.2 Inconclusive mammogram
CPT/HCPCS: 88305 ×2; 88342; 19081; 77065; J3490

== ENCOUNTER 2020-05-31 10:12 | Day surgery (SDC) | payer BC ==
[2020-05-26 13:07] LABS: HEMATOCRIT 44.6 % (36.0-47.0); HEMOGLOBIN 15.3 g/dL (12.0-15.5); MEAN CORPUSCULAR HEMOGLOBIN 32.1 pg (27.0-33.4); MEAN CORPUSCULAR HGB CONC 34.3 g/dL (32.0-36.0); MEAN CORPUSCULAR VOLUME 94 fl (80-97); PLATELET COUNT 244 10^3/uL (150-450); RED BLOOD COUNT 4.76 10^6/uL (3.72-5.28); RED CELL DISTRIBUTION WIDTH 13.2 % (11.5-14.0)
[2020-05-26 13:34] LABS: ANION GAP 8 (5-19); BLOOD UREA NITROGEN 14 mg/dL (7-20); CARBON DIOXIDE 29 mmol/L (22-30); CHLORIDE 100 mmol/L (98-107); GLUCOSE 87 mg/dL (75-110); POTASSIUM 4.6 mmol/L (3.6-5.0)
--- NOTE | 2020-05-27 09:20 | EKG REPORT ---
SEVERITY:- BORDERLINE ECG - SINUS RHYTHM BORDERLINE INFERIOR Q WAVES : Confirmed by: Galina Amador 27-May-2020 09:20:01
[~2020-05-31 10:12] MED LIST changes: +CEFAZOLIN 1 GM/D5W RTU 1 GM/50 ML RTUPB IV PRN; +LACTATED RINGERS 1000 ML IV PRN; +LIDOCAINE 0.5% INJ-PF (5 MG/ML) 50 ML SDV SUBCUT PRN; -LIDOCAINE 1%/EPINEPHRINE INJ 20 ML VIAL ONE; +LIDOCAINE 2% INJ (20 MG/ML) 20 ML MDV ONE; +LIDOCAINE 4% CREAM 5 GM TUBE TP PRN
[2020-05-31] MEDS ORDERED: CEFAZOLIN 1 GM/D5W RTU 1 GM/50 ML RTUPB IV ONE (10:18)
[2020-05-31] MEDS ORDERED: LIDOCAINE 4% CREAM 5 GM TUBE ONE (10:19)
--- NOTE | 2020-05-31 15:07 | RADIOLOGY REPORT (SQ) ---
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 The route of agent administration: Subcutaneous in the skin. TECHNIQUE: The skin of the left breast was prepped in sterile fashion. The radiopharmaceutical was administered in equally divided doses in the periareolar breast. LIMITATIONS: None. FINDINGS: Images demonstrate activity at the injection site as well as within 2 axillary lymph nodes . IMPRESSION: ADMINISTRATION OF RADIOPHARMACEUTICAL FOR SENTINEL LYMPH NODE EVALUATION. TECHNICAL DOCUMENTATION: JOB ID: [id number] 2010 [employer]- All Rights Reserved Reading location - IP/workstation name: [email or web address]
[2020-05-31] MEDS ORDERED: ONDANSETRON HCL INJ/PF 4 MG/2 ML SDV ONE (15:19)
[2020-05-31] MEDS ORDERED: LIDOCAINE 2% INJ-PF (20 MG/ML) 10 ML AMPUL ONE (15:19)
[2020-05-31] MEDS ORDERED: FENTANYL CITRATE INJ/PF 100 MCG/2 ML AMPUL ONE (15:19)
[2020-05-31] MEDS ORDERED: DEXAMETHASONE SOD PHOSPHATE INJ 4 MG/1 ML VIAL ONE (15:19)
[2020-05-31] MEDS ORDERED: PROPOFOL INJ 200 MG/20 ML VIAL IV ONE (15:19)
[2020-05-31] MEDS ORDERED: MIDAZOLAM 2 MG/2 ML INJ ONE (15:19)
[2020-05-31] MEDS ORDERED: LIDOCAINE 1%/EPINEPHRINE INJ 20 ML VIAL ONE (15:20)
[2020-05-31] MEDS ORDERED: MICROFIBRILLAR COLLAGEN 1 GM PACK ONE (15:20)
[2020-05-31] MEDS ORDERED: METHYLENE BLUE 50 MG/10 ML AMPULE ONE (15:20)
[2020-05-31] MEDS ORDERED: FENTANYL CITRATE INJ/PF 100 MCG/2 ML AMPUL IV PRN ×3 (16:25)
[2020-05-31] MEDS ORDERED: DIPHENHYDRAMINE HCL 50 MG/ML VIAL IV PRN (16:25)
[2020-05-31] MEDS ORDERED: PROMETHAZINE HCL INJ 25 MG/1 ML VIAL IV PRN ×2 (16:25)
[2020-05-31] MEDS ORDERED: MEPERIDINE HCL/PF INJ 25 MG/1 ML DISP.SYRIN IV PRN (16:25)
[2020-05-31] MEDS ORDERED: OXYCODONE-ACETAMINOPHEN 5-325 MG TABLET PO PRN ×2 (16:25)
[2020-05-31] MEDS ORDERED: ONDANSETRON HCL INJ/PF 4 MG/2 ML SDV IV PRN (16:25)
--- NOTE | 2020-05-31 16:44 | RADIOLOGY REPORT (SQ) ---
EXAM DESCRIPTION: WIRE LOC MAMMO; BREAST SPECIMEN IMAGES COMPLETED DATE/TIME: 05/31/2020 12:37 pm; 05/31/2020 4:20 pm REASON FOR STUDY: LT D05.10 NEEDLE LOCALIZATION; LEFT BREAST SPECIMEN IN OR D05.10 INTRADUCTAL CARC INOMA IN SITU OF UNSPECIFIED BREAST COMPARISON: None. TECHNIQUE: The biopsy marker in the left breast was localized mammographically using a grid marker. The skin of the breast was prepped in sterile fashion and local anesthesia was provided. The local ization needle was advanced to the target. The tip was positioned adjacent to the target and confirm ed with two orthogonal views. Surgical dye was not injected for this procedure. The wire was placed through the needle and the hook engaged. Post procedure mammogram demonstrates satisfactory position of the needle and wire. Specimen radiograph demonstrates the intact localization wire as well as the targeted lesion within t he biopsy specimen. LIMITATIONS: None. FINDINGS: Procedure as above. Pathology: Pending. IMPRESSION: SUCCESSFUL NEEDLE LOCALIZATION OF THE LESION IN THE LEFT BREAST. FOLLOW-UP PER THE Estrella BRUSH'S SURGEON. TECHNICAL DOCUMENTATION: JOB ID: [id number] 2010 [employer]- All Rights Reserved Reading location - IP/workstation name: [email or web address]
--- NOTE | 2020-05-31 17:08 | Discharge Summary ---
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 Wear compressive bra during the day. Follow-up with [place] [facility] in 2 weeks. November shower 48 hours. Referrals: REBECA CHAND PA-C [Primary Care Provider] - Discharge Diet: As Tolerated Discharge Activity: Activity As Tolerated Home Care Assistance: None Needed Report the Following to Your Physician Immediately: Shortness of Breath, Increase in Pain, Fever over 101 Degrees
--- NOTE | 2020-05-31 17:17 | Operative Report ---
Operative Report DATE OF SURGERY: 05/31/20 PREOPERATIVE DIAGNOSIS: 1. Extensive DCIS left breast. 2. Former smoker POSTOPERATIVE DIAGNOSIS: Same OPERATION: 1. Open excisional lumpectomy localization left breast. 2. [place] lymph node biopsy x2 left axilla using dual mapping technique. 3. Interpretation intraoperative specimen radiographs SURGEON: DEBORAH MCKENZIE [facility] SUPERVISOR: GILMA HEWITT ANESTHESIA: GA TISSUE REMOVED OR ALTERED: Left breast lumpectomy specimen; sentinel lymph nodes x2 COMPLICATIONS: None ESTIMATED BLOOD LOSS: Scant INTRAOPERATIVE FINDINGS: See below PROCEDURE: The patient was seen in the preop holding area where the left breast was marked. Patient had undergone lymphoscintigraphy with an area of uptake in the left axilla. Bedside probe scanning neoprobe menstruated activity in the left axilla. The patient was taken to the operating room general anesthesia was induced. Left arm was abducted, left breast needle and wire clipped at the skin level. Left breast injected with 2 cc of methylene blue 2 o'clock position a reolar border intradermally. Left breast massage, the left breast and axilla prepped and draped in sterile fashion Surgical plan surgical timeout were conducted. Dr. Mckenzie reviewed the preoperative images of the left breast, including the needle localization images with the radiologist. The target group distribution of microcalcifications extending from anterior breast to the deeper portion of the breast, with a clip marker, needle and wire bordering the deepest extent of the microcalcifications. I felt that a lumpectomy specimen encompassing the anterior mid and deep microcalcifications would be possible through an incision placed over the 2 o'clock position left breast. The skin was anesthetized 1% plain lidocaine. Approximately 6 cm incision was made between the areolar border and the wire, between 12 and 2 o'clock position. A generous lumpectomy specimen was now created encompassing the needle and wire, and a substantial portion of breast tissue from the retroareolar region to the deep upper outer quadrant of the breast. The specimen was removed, labeled with a long suture in the lateral position and short suture in the superior position, placed on a Lito dish and photographed intraoperatively with the specimen radiograph machine. This demonstrated retention of the clip, wire, and the large extensive array of microcalcifications. 2 images were obtained, 90 degrees from each other. The images were reviewed with Dr. Lori Wearrung who felt that the target microcalcifications had been less fully retained in the lumpectomy specimen. The specimen was therefore sent to pathology for permanent analysis We now completed the sentinel lymph node biopsy for patient. An area of increased activity in left axilla was identified. Skin was anesthetized 1% plai n lidocaine, 2.5 cm incision was made with a knife, and using the neoprobe as a guide, 2 sentinel lymph nodes were removed, the first, blue and hot with an in vivo count of 11,119 an ex vivo count of 21,860. A second sentinel lymph node hot but not blue had an ex vivo count of 1590. Background counts were still elevated, however the patient was having agitation with the LMA and despite multiple manipulations of the tube by anesthesia, she did not settle down sufficiently to endure further elevation of the pectoralis muscle to take for a potential fourth sentinel lymph node. Therefore we deemed the sentinel lymph node biopsy portion of the operation complete. Sponge and counts are correct. We did place a drain through the left inferior skin flap, secured to the skin with 2-0 silk suture, trimmed to the appropriate length, and closed all incisions with 3-0 Vicryl and skin glue. Patient tolerated the procedure well, extubated, taken recovery in stable condition. The physician assistant store manager sales, Ms. Parker, provided assistance during this case by: Assisting with port insertion, retracting tissue, instillation of local anesthesia and closure of skin incisions.
[2020-05-31] MEDS ORDERED: OXYCODONE-ACETAMINOPHEN 5-325 MG TABLET ONE (17:30)
[2020-05-31 19:13] VITALS: BP 156/51
== END 2020-05-31 18:52 | disposition home or self-care (01) ==
LOC: OROUT 10:12
PROVIDERS: ATTEND Surgery
DX: D05.12 Intraductal carcinoma in situ of left breast (principal); Z20.828 Contact with and (suspected) exposure to other viral communicable diseases; Z87.891 Personal history of nicotine dependence; Z90.49 Acquired absence of other specified parts of digestive tract; G47.30 Sleep apnea, unspecified; I69.354 Hemiplegia and hemiparesis following cerebral infarction affecting left non-dominant side; Z79.899 Other long term (current) drug therapy; I10 Essential (primary) hypertension; Z79.02 Long term (current) use of antithrombotics/antiplatelets
CPT/HCPCS: 93005; 36415 ×2; 84132; 85027; 80048; 88342 ×2; 88305 ×2; 88307 ×2; 78195; 93010; 00400; 19281; 76098; 19301; 38500; U0003; A9520; J2250; J3490 ×4; J0690; J1100; J3010; J2405; J2704; Q9968; C9803; 400; 87635